=== PATIENT | female | born 1975 | race Caucasian/White ===

== ENCOUNTER → 2022-05-22 15:04 | Outpatient (CLI) | payer BC, SELFPAY ==
--- NOTE | ~2022-05-22 | US_ITS ---
EXAMINATION: US pelvic complete w TV DATE: 05/22/2022 15:34 INDICATION: Pelvic and perineal pain TECHNIQUE: Multiple transabdominal and endovaginal sonographic images of the pelvis were obtained. COMPARISON: None. FINDINGS: The uterus measures 6.9 x 3.5 x 4.7 cm. There is a 1.6 cm mass of the uterine fundus with t he appearance of an intramural fibroid. Smaller adjacent hypoechoic masses measuring up to 6 mm also likely reflect intramural fibroids. The endometrial complex measures 3 mm. Nabothian cysts are noted in the cervix. The right ovary measures 2.7 x 1.1 x 1.6 cm. The left ovary measures 2.1 x 1.5 x 1.5 c m. There is normal vascular flow in the ovaries. There is no free fluid in the pelvis. IMPRESSION: 1. Fibroid uterus. Reviewed, dictated and finalized at location B. TCH POLISHER IMPRESSION: 1. Fibroid uterus.
== END ==
PROVIDERS: PCP Physician Assistant; Visit Provider Obstetrics & Gynecology
DX: R10.2 Pelvic and perineal pain (principal); D25.9 Leiomyoma of uterus, unspecified
CPT/HCPCS: 76830; 76856

== ENCOUNTER 2024-02-08 14:34 | Outpatient (CLI) | payer BC, SELFPAY ==
--- NOTE | ~2024-02-08 | MM_ITS ---
EXAMINATION: MM screening kaity BI w savita HISTORY: Screening TECHNIQUE: Craniocaudal and mediolateral oblique 3-D tomosynthesis images were obtained and synthetic 2-D images were generated. CAD analysis was submitted and interpreted. COMPARISON: 08/13/2015 BREAST PARENCHYMAL COMPOSITION: Dense: The breasts are extremely dense, which lowers the sensitivity of mammography. FINDINGS: There is no evidence of suspicious mass, calcification, or architectural distortion to sugg est malignancy in either breast. There has been no suspicious interval change. IMPRESSION: 1. No mammographic evidence of malignancy. 2. Recommend routine screening mammography in one year. BI-RADS Category 1: Negative Reviewed, dictated and finalized at location B.
== END 2024-02-08 14:35 | disposition home or self-care (01) ==
LOC: ANHIMG 14:35
PROVIDERS: PCP Physician Assistant; Visit Provider Obstetrics & Gynecology
DX: Z12.31 Encounter for screening mammogram for malignant neoplasm of breast (principal)
CPT/HCPCS: 77063; 77067

== ENCOUNTER 2024-02-20 15:47 | Outpatient (CLI) | payer BC, SELFPAY ==
--- NOTE | ~2024-02-20 | XR_ITS ---
XR hip BI wo pelvis Ordering provider: Elis Cardenas, CHELITA History: . bilateral hip joint pain no injury . Comparison: None. FINDINGS: BONES: No acute fracture or dislocation. HIP JOINT SPACES: Normal. SACROILIAC JOINT SPACES/LUMBAR SPINE: The sacroiliac joint spaces are normal. Mild degenerative juarez es of the visualized lower lumbar spine. PUBIC SYMPHYSIS: Normal. SOFT TISSUES: Normal. IMPRESSION: No acute osseous abnormality of the bilateral hips and pelvis. Reviewed, dictated and finalized at location A.
== END 2024-02-20 15:48 | disposition home or self-care (01) ==
LOC: GOSHIMG 15:50
PROVIDERS: Visit Provider Physician Assistant
DX: M25.551 Pain in right hip (principal)
CPT/HCPCS: 73521

== ENCOUNTER 2024-08-30 10:00 | Outpatient (CLI) | payer BC, SELFPAY ==
--- NOTE | ~2024-08-30 | CT_ITS ---
EXAMINATION: CT sinus wo con DATE: 08/30/2024 10:47 INDICATION: Chronic sinusitis TECHNIQUE: Computed tomography (CT) of the paranasal sinuses was performed without intravenous contra st. The dose-length product was 286.08 mGy-cm. Automated exposure control and iterative reconstructio n technique were employed. COMPARISON: None FINDINGS: There is no significant mucosal thickening or air-fluid level. No mucoperiosteal reaction. Rightward nasal septal deviation. Ostiomeatal units are patent. Mastoids are pneumatized. IMPRESSION: 1. No significant sinus disease. Reviewed, dictated and finalized at location A.
--- OUTSIDE RECORDS SUMMARY | 2024-08-30 10:04 | XMS_ITS | Clinical Summary ---
Author Organization [facility] Address [address] [place] [address] Care Team Providers Care Supervisor Cell Room Name Role Phone Elis Wallace Primary Care Pr ovider Source Comments [facility],non-owned Affiliates and Associated Physician Practices is amultiple site organization consisting of ambulatory clinics and hospital sitesin [place], [place], [place]. This disclosure is being madepursuant to the Care Everywhere program and may not contain all information available regarding this patient. Last updated 18.[facility] Allergies No known active allergies Medications * Be aware that medications may not be up to date on this document. Alwaysverify current medications with the patient. OtherIndications: oral contraceptive Reasons: oral contraceptive Active Social History Tobacco Use Types Packs/Day Years Used Date Smoking Tobacco: Former Cigarettes 1 20 Smokeless Tobacco: Never Comments:vapor e cig now Comments No Sex and Gender Information Value Date Recorded Sex Assigned at Not on file Legal Sex Female 6:50 AM ALL ROUND LOGGER Gender Identity Not on file Sexual Orientation Not on file Last Filed Vital Signs Vital Sign Reading Time Taken Comments Blood Pressure 130/80 11/15/2018 5:31 PM CDT Pulse 78 11/15/2018 5:31 PM CDT Temperature 36.9 C (98.4 F) 11/15/2018 5:31 PM CDT Respiratory Rate 16 11/15/2018 5:31 PM CDT Oxygen Saturation 98% 11/15/2018 5:31 PM CDT Inhaled Oxygen Concentration - - Weight 70.3 kg (155 lb) 11/15/2018 5:31 PM CDT Height 177.8 cm (5' 10 ) 11/15/2018 5:31 PM CDT Body Mass Index 22.24 11/15/2018 5:31 PM CDT Plan of Treatment Health Maintenance Due Date Last Done Comments COLOGUARD (AGES 45-75) - COL ON CA SCREENING 1974 COLON MONITORING 1974 COLONOSCOPY - COLON CA SCREENING 1974 CT COLONOGRAPHY - COLON CA SCREENING 1974 Colorectal Cancer Screening 1974 FIT - COLON CA SCREENING 1974 FLEX SIG - COLON CA SCREENING 1974 LIPID TESTING 1974 MAMMOGRAM 1974 HIV SCREENING 1989 HEPATITIS C SCREENING 10/17/1992 DTAP/TDAP/TD VACCINES (1 - Tdap) 1993 HEPATITIS B VACCINE (1 of 3 - 19+ 3-dose series) 1993 COVID-19 VACCINE (1 - 2023-2 5 season) 2023 DEPRESSION SCREENING 04/23/2024 ZOSTER VACCINE (1 of 2) 2024 INFLUENZA VACCINE (Season Ended) 2024 HIB VACCINE Aged Out No longer eligi ble based on patient's age to complete this topic HPV VACCINE Aged Out No longer eligi ble based on patient's age to complete this topic MENINGOCOCCAL (Group B) VACC INE SHARED DECISION-MAKING Aged Out No longer eligibl e based on patient's age to complete this topic MENINGOCOCCAL GROUPS A/C/Y/W VACCINE Aged Out No longer eligible b ased on patient's age to complete this topic Insurance [employer] Care Teams Supervisor Cell Room Relationship Specialty Start Date End Date Elis Wallace PA [address] [place] [address] [place] [phone] PCP - General Physician Nurse Anesthetist 11/15/18
--- OUTSIDE RECORDS SUMMARY | 2024-08-30 10:04 | XMS_ITS | Referral Summary ---
Author Organization [facility] Address [address] [place] [phone] Phone Care Team Providers Care Manager Real Estate Name Role Phone David Cardenaswanda VALENTE Primary Care Pr ovider Encounters Date Type Department Care Team Description 06/06/2024 3:45 PM MICA LAMINATING MACHINE FEEDER Office Visit [facility] [address] [place] [id number] Sarah Hernandez, ALIA Bilateral acute serous otitis media, recurrence not specified (Primary Dx) from Last 3 Months Allergies No known active allergies Medications levonorgestreL- ethinyl estrad (SEASONALE) 0.15 mg-30 mcg (91) per tablet Take 1 tablet by mouth daily 3 Active multivitamin capsule Take 1 capsule by mouth daily Active B cmplx 4/vit D3/C/folic/zinc (VITAL-D RX ORAL) Take by mouth Active vitamin B complex (B COMPLEX-VITAMIN B12 ORAL) Take by mouth Active omega-3 fatty acids-fish oil (Fish OiL) 300-500 mg capsule Take by mouth Active turmeric root extract 500 mg capsule Take by mouth Active cyclobenzaprine (FLEXERIL) 10 mg tablet TAKE 1 TABLET 3 TIMES A DAY BY ORAL ROUTE NEEDED. [address] (VOLTAREN) 75 mg EC tablet TAKE ONE TABLET BY MOUTH TWICE A DAY WITH FOOD NEEDED Active topiramate (TOPAMAX) 50 mg tablet Take 1 tablet (50 mg total) by mouth 2 (two) times a day 5 Active fluticasone propionate (FLONASE) 50 mcg/actuation nasal sprayIndication s:Bilateral acute serous otitis media, recurrence not specified Administer 2 sprays into each nostril daily 1 each 5 Active Active Problems Problem Noted Date Diagnosed Date Weakness of left leg 06/19/2022 Lumbar radiculopathy 06/19/2022 Degeneration of lumbosacral intervertebral disc 06/19/2022 Neuralgia of left sciatic nerve 06/04/2022 Thoracic back pain 01/20/2022 COVID-19 09/13/2021 Multiple joint pain 07/20/2021 Low back pain 07/20/2021 Social History Tobacco Use Types Packs/Day Years Used Date Smoking Tobacco: Never Tobacco Cessation:Counseling Given: Not Answered AUDIT-C Answer Date Recorded Q1: How often do you have a drink containing alcohol? Never 03/07/2024 Q2: How many drinks containi ng alcohol do you have on a typical day when you are drinking? Patient does not drink Q3: How often do you have si x or more drinks on one occasion? Never 03/07/2024 Comments Unknown Sex and Gender Information Value Date Recorded Sex Assigned at Not on file Legal Sex Female 9:19 AM MICA LAMINATING MACHINE FEEDER Gender Identity Female 03/07/2022 5:46 PM MICA LAMINATING MACHINE FEEDER Sexual Orientation Straight 03/07/2022 5: 46 PM MICA LAMINATING MACHINE FEEDER Last Filed Vital Signs Vital Sign Reading Time Taken Comments Blood Pressure 104/70 06/06/2024 2:27 PM MICA LAMINATING MACHINE FEEDER Pulse 102 06/06/2024 2:27 PM MICA LAMINATING MACHINE FEEDER Temperature 36.6 C (97.8 F) 06/06/2024 2:27 PM MICA LAMINATING MACHINE FEEDER Respiratory Rate 16 06/06/2024 2:27 PM MICA LAMINATING MACHINE FEEDER Oxygen Saturation 99% 06/06/2024 2:27 PM MICA LAMINATING MACHINE FEEDER Inhaled Oxygen Concentration - - Weight 83.9 kg (185 lb) 06/06/2024 2:27 PM MICA LAMINATING MACHINE FEEDER Height 177.8 cm (5' 10 ) 06/06/2024 2:27 PM MICA LAMINATING MACHINE FEEDER Body Mass Index 26.54 06/06/2024 2:27 PM MICA LAMINATING MACHINE FEEDER Plan of Treatment Not on file [place] [facility] Care Teams Manager Real Estate Relationship Specialty Start Date End Date Elis Cardenas PA [address] [place] [phone] PCP - General Physician Production Inspector 02/11/24
--- OUTSIDE RECORDS SUMMARY | 2024-08-30 10:04 | XMS_ITS | Data Portability ---
Author Organization [facility] Address [address] [place] [address] Care Team Providers Care Soda Fountain Operator Name Role Phone ELIS GEORGE Primary Care Provider Unavailab le Assessment Encounter Date Assessment Date Assessment LastModified by Organization Details LastModified Time 02/08/2024 02/08/2024 mammogram: today was completed. results pending pap smear: annual exams with dr. loyola colonoscopy: Cologuard within the last 3 years eye exam: overdue dental exam: every 4 months labs UTD brought in to appt. [email or web address] Not available 02/08/2024 16:48:16 Plan of Treatment Reminders Order Date Submit Date Provider Last Modified By Organization Details Last Modified Time Details Appointments None recorded. Lab None recorded. Referral orthopedic spine surgeon referral 2023 [facility], [address] [place] [address], [address], 17:48:04 Procedures None recorded. Surgeries None recorded. Imaging XR, hip, bilateral 2023 024 [email or web address] [facility], [address], [place], [address], 14:52:19 Medication Orders diclofenac sodium 75 mg tablet,vashti yed release 2023 024 [facility] [address] In [facility], [address], [place], [address], 17:26:25 cyclobenzap rine 10 mg tablet 2023 024 [facility] [address] [facility], [address], [place], [address], 17:26:25 Patient TargetsNo targets recorded. Patient InstructionsNo instructions recorded. Reason for Referral Orthopedic Spine Surgeon Ref erral for Left foot drop Referring Physician: Elis George, Internal Medicine, Encounter Date: 02/08/2024 Results Created Date Observation Date Name Description Value Unit Range Abnormal Flag Note LastModifiedBy Organization Detail LastModifiedTime 02/08/2002/08/2024 MAMMO , scree baldev, digit al, bilat eral No observ ation record ed. [email or web address] [facility] [address], [place], [address], 02/08/2024 17:55:28 02/21/2002/20/2024 XR, hip, bilat eral No observ ation record ed. LUCAS [facility] [address] [facility] [address], [place], [address], 02/22/2024 18:45:38 Result Notes None recorded. Problems Name Problem SNOMED Code Status Onset Date Resolution Date Notes Provider Name and Address Organization Details Recorded Time Long-term drug therapy Active 2023 SIDRA Kahn Attn: Jayne mendez,[address] [place], [address], [facility] 18:27:26 Low back pain 821553403 Active 2023 SIDRA Kahn Attn: Jayne mendez,[address] [facility], [place], [address], [place] [facility] 4 18:27:30 Cramp in lower limb 207727010 Active 2023 SIDRA Kahn Attn: Jayne mendez,[address] [facility], [place], [address], [facility] 18:27:51 Left foot drop 2190154995262 05 Active 2023 SIDRA Kahn Attn: Jayne mendez,[address] [facility], [place], [address], [facility] 18:27:52 Pain of bilateral hip joints 6654244718856 9100 Active 2023 SIDRA Kahn Attn: Jayne mendez,[address] [facility], [place], [address], [facility] 18:28:05 Body mass index 25-29 - overweight 050219663 Active 2023 SIDRA Kahn Attn: Jayne mendez,[address], [place], [address], [facility] 18:28:37 Problem Notes None recorded. Procedures Surgical History Date Name Laterality Status Provider Name and Address Organization Details Recorded Time 9 Knee Surgery completed Alhaji Sosa MA [facility] 02/08/2024 16:32:04 Imaging Results Imaging Date Name Status LastModified by Organiz ation Details LastModified Time 02/08/2024 MAMMO, screening, digital, bilateral completed [email or web address] [facility] [address], [place], [address], 02/08/2024 17:55:28 02/20/2024 [facility]R, hip, [facility] [address] [facility] [address], [address], 02/22/2024 18:45:38 Procedure Notes None recorded. Medical Equipment None Reported. Allergies No known drug allergies Medications Name Sig Start Date Stop Date Status Note LastModified by Organization Details LastModified Time cyclobenzap rine 10 mg tablet TAKE 1 TABLET 3 TIMES A DAY BY ORAL ROUTE NEEDED. 2024 active Not Available Not Available Not Avai lable Medrol (Lamont) 4 mg tablets in a dose pack Take as directed 06/27 completed Not Available Not Available Not Available prednisone 20 mg tablet TAKE 2 TABLETS BY MOUTH EVERY DAY FOR 5 DAYS active Not Available Not Available No t Available topiramate 25 mg tablet TAKE 1 TABLET BY MOUTH EVERYDAY AT BEDTIME 05/22 completed Not Available Not Available Not Available amoxicillin 875 mg tablet TAKE 1 TABLET BY MOUTH EVERY 12 HOURS active Not Available Not Available No t Available diclofenac sodium 75 mg tablet,vashti yed release TAKE ONE TABLET BY MOUTH TWICE A DAY WITH FOOD NEEDED 2024 active Not Available Not Available Not Avai lable fluticasone propionate 50 mcg/actuati on nasal spray,suspe nsion SPRAY 2 SPRAYS INTO EACH NOSTRIL EVERY DAY 2024 active Not Available Not Available Not Avai lable amoxicillin 875 mg-potassiu m clavulanate 125 mg tablet TAKE 1 TABLET BY MOUTH TWICE A DAY FOR 10 DAYS active Not Available Not Available No t Available levonorgest rel 0.15 mg-ethinyl estradiol 30 mcg tablets,3 mos pack(91) TAKE 1 TABLET DAILY active Not Available Not Available No t Available topiramate 50 mg tablet TAKE 1 TABLET BY MOUTH TWICE A DAY 2024 active Not Available Not Available Not Avai lable Vitals Date Recorded Body weight Body mass index (BMI) Body height Oxygen saturation Oxygen saturation in Arterial blood by Pulse oximetry Heart rate Respiratory rate Systolic blood pressure Diastolic blood pressure Provider Name and Address Organization Details Last Updated DateTime 4 83235.4 g 25.5 kg/m2 180.34 cm 99 % 99 % 78 /min 18 /min 108 mm[Hg] 68 mm[Hg] Alhaji Sosa [place] [facility] 16:36:11 Date Recorded Systolic blood pressure Diastolic blood pressure Provider Name and Address Organization Details Last Updated DateTime 02/08/2024 110 mm[Hg] 80 mm[Hg] SIDRA Kahn Attn: Accounting,[address] [place], [address], [place] [facility] 02/24/2024 18:23:35 Social History Question Answer Notes LastModified by Organizat ion Details LastModified Time Tobacco Smoking Status Former Smoker quit 2022 Alhaji Sosa MA null, [place] [facility] 02/08/2024 16:30:33 Do You Have An Advance Directive? Yes Information not available 02/08/2024 What Is Your Level Of Alcohol Consumption? None Information not available 02/08/2024 Are You Blind Or Do You Have Difficulty Seeing? No Readers Information not available 02/08/2024 What Is Your Level Of Caffeine Consumption? Moderate Information not available 02/08/2024 In The 14 Days Before Symptom Onset, Have You Had Close Contact With A Laboratory-confir med COVID-19 While That Case Was Ill? No Information not available 02/08/2024 In The 14 Days Before Symptom Onset, Have You Had Close Contact With A Person Who Is Under Investigation For COVID-19 While That Person Was Ill? No Information not available 02/08/2024 Have You Been To An Area Known To Be High Risk For COVID-19? No Information not available 02/08/2024 Are You Currently Employed? Yes Information not available 02/08/2024 Are You Deaf Or Do You Have Serious Difficulty Hearing? No Information not available 02/08/2024 What Type Of Diet Are You Following? 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 No Information not available 02/08/2024 What Was The Date Of Your Most Recent Tobacco Screening? 02/08/2024 Information not available 02/08/2024 What Is Your Current Pack Years? 20-29packyea rs Information not available 02/08/2024 What Is Your Relationship Status? Information not available 02/08/2024 Do You Use Your Seat Belt Or Car Seat Routinely? Yes Information not available 02/08/2024 Do You Have Smoke And Carbon Monoxide Detectors In Your Home? Yes Information not available 02/08/2024 How Much Tobacco Do You Smoke? No Information not available 02/08/2024 Do You Feel Stressed (tense, Restless, Nervous, Or Anxious, Or Unable To Sleep At Night)? [id number] Information not available 02/08/2024 Do You Use Any Illicit Or Recreational Drugs? No Information not available 02/08/2024 Do You Use Sunscreen Routinely? Yes Sometimes Information not available 02/08/2024 Has Tobacco Cessation Counseling Been Provided? No Information not available 02/08/2024 How Many Years Have You Smoked Tobacco? 20 Information not available 02/08/2024 Do You Or Have You Ever Used Any Other Forms Of Tobacco Or Nicotine? No Information not available 02/08/2024 Sex: Female Functional Status Question Answer Note LastModified by Organizat ion Details LastModified Time Are you able to care for yourself? Yes Information not available 02/08/2024 What is your exercise level? Moderate 3x a week 30 mins Information not available 02/08/2024 Mental Status None recorded. Family History Relationship Description Onset Age of this Age Resolved Age Notes LastModified by Organization Details LastModified Time Brother Harmful pattern of use of alcohol [email or web address] Not available 2023 16:29:38 Brother Depressive disorder tcarterma Not available 2023 16:29:52 Brother Anxiety tcarterma Not availabl e 02/08/2024 16:29:57 Medical History Condition Response Coronary Artery Disease N Other N High Blood Pressure N Atrial Fibrillation N Kidney or Bladder Problems N Thyroid Problems N GI Problems N Depression N COPD Y Blood Clots N Have you had a mammogram in the last yea r? N Skin Problems N Anemia N Heart Attack (HI) N Anxiety Disorder N Diabetes N Muscle, Joint, or Bone Problems N Seizures/Epilepsy N Have you had a colonoscopy in the last 1 0 years? N Acid Reflux (GERD) N Cancer N Stroke N Asthma N Allergies N Have you had a PSA blood test in the las t year? N High Cholesterol N Hepatitis N Liver Disease N Headaches N Heart Failure N Osteoporosis N Gynecological History Statement/Question Response Duration of Flow (days) Current Control Method BCPs Obstetrics History GPAL:G 0 P 0 0 0 0 Immunizations Vaccine Type Date Status Note Provider Nam samuel and Address Organization Details Recorded Time Influenza, MDCK, quadrivalent, PF 02/27/2022 completed Alhaji S[place], [place] [facility] 02/08/2024 16:33:03 Influenza, MDCK, quadrivalent, PF 03/02/2023 completed ANOOP [place], [place] [facility] 02/08/2024 16:33:04 COVID-19, mRNA, LNP-S, PF, 100 mcg/0.5mL dose or 50 mcg/0.25mL dose 05/07/2020 [place] ANOOP [place] [facility] 02/08/2024 16:33:04 COVID-19, mRNA, LNP-S, PF, 100 mcg/0.5mL dose or 50 mcg/0.25mL dose 06/04/2020 [place] ANOOP [place] [facility] 02/08/2024 16:33:04 COVID-19, mRNA, LNP-S, PF, 100 mcg/0.5mL dose or 50 mcg/0.25mL dose 04/10/2021 [place] ANOOP [place] [facility] 02/08/2024 16:33:04 influenza, unspecified formulation 02/15/2024 [place] AN[place]OP [place] [facility] 02/18/2024 10:18:23 Past Encounters Encounter ID Performer Location Encounter Start Date Encounter Closed Date Diagnosis/Indication Diagnosis SNOMED-CT Code Diagnosis ICD10 Code Diagnosis Note [id number] Conrad Baez MD [facility] [place] [address] [place] [address] 02/08/2024 16:05:09 02/11/2024 15:13:45 Adult health examination 336344346 Z00.00 Annual wellness exam is completed, labs were reviewed with patient. Long-term drug therapy 081752092 Z79.891 Refill on Flexeril as directed Low back pain 013297369 M54.50 Refill on diclofenac therapy as directed Cramp in lower limb 0029 40883 R25.2 Cramp and lower limb reviewed with patient. Suggest some homeopathi c modalities such as Epson salt soaks or topical cream agents or magnesium supplement Left foot drop 629369453 1 78480 M21.372 Refer to ortho commodity management specialist for evaluation on her left footdrop onset Pain of bi lateral hip joints 9458064265 0884976 M25.551 M25.552 Check baseline x-rays of the hips with bilateral hip pain reported Body mass index 25-29 - overweight 990074207 Z68.25 BMI is 25.5 Health Concerns Section Related Observation LastModified by Organization Detai ls LastModified Time None Recorded Concern Status LastModified by Organization Details LastModified Time None Recorded Advance Directives Directive Y: Payers Encounter Date Sequence Insurance Name Policy Number Policy Carrasco Covered Member ID Carrasco Member ID Guarantor Name 02/08/2024 1 [facility]: ([place]) [id number] [id number] Notes Date Note Type Note Provider Name and Address Organization Details Recorded Time 02/08/2024 text/html Patient is here for her annual wellness exam. She had her labs completed in November and they are able to be reviewed today. Her only complaints are her chronic low back pain that she has and takes diclofenac for on a daily basis. She also takes some cyclobenzaprine muscle relaxer which helps as well on a p.r.n. basis. New complaints accompanying that include cramps in her lower limb as well as a left footdrop that has been progressive over this year. Her hips hurt on both sides and are also a chronic complaint. She does need refills on her medications. SIDRA Kahn Attn: Accounting,[address] [facility], [place], [address], [facility] 02/24/2024 18:28:53 OBGyn Episode No OBEpisode recorded.
--- OUTSIDE RECORDS SUMMARY | 2024-08-30 10:05 | XMS_ITS | Clinical Summary ---
Author Organization [facility] Address [address] [place] [id number] Phone Care Team Providers Care Service Engineer Name Role Phone Theresa Elis VALENTE Primary Care Pr ovider Allergies No known active allergies Medications levonorgestreL- [...] joint pain 07/20/2021 Low back pain 07/20/2021 Encounters Date Type Department Care Team Description 06/06/2024 3:45 PM CONTRACT FORESTER Office Visit [facility] [address] [place] [id number] Sarah Hernandez, [place] Bilateral acute serous otitis media, recurrence not specified (Primary Dx) from Last 3 Months Surgical History Surgery Date Site/Laterality Comments KNEE SURGERY 1980.1987,1988 BREAST CYST EXCISION Family History Medical History Relation Name Comments Alcohol abuse Brother Mental illness Brother Arthritis Father COPD Father Cancer Father Rheum arthritis Mother Relation Name Status Comments Brother Father Mother Social History Tobacco Use Types Packs/Day Years [...] on file Legal Sex Female 9:19 AM CONTRACT FORESTER Gender Identity Female 03/07/2022 5:46 PM CONTRACT FORESTER Sexual Orientation Straight 03/07/2022 5: 46 PM CONTRACT FORESTER Obstetrics History Last Filed Vital Signs Vital Sign Reading Time Taken Comments Blood Pressure 104/70 06/06/2024 2:27 PM CONTRACT FORESTER Pulse 102 06/06/2024 2:27 PM CONTRACT FORESTER Temperature 36.6 C (97.8 F) 06/06/2024 2:27 PM CONTRACT FORESTER Respiratory Rate 16 06/06/2024 2:27 PM CONTRACT FORESTER Oxygen Saturation 99% 06/06/2024 2:27 PM CONTRACT FORESTER Inhaled Oxygen Concentration - - Weight 83.9 kg (185 lb) 06/06/2024 2:27 PM CONTRACT FORESTER Height 177.8 cm (5' 10 ) 06/06/2024 2:27 PM CONTRACT FORESTER Body Mass Index 26.54 06/06/2024 2:27 PM CONTRACT FORESTER Plan of Treatment Health Maintenance Due Date Last Done Comments Breast Cancer Screening-Mammogram 1974 Cervical Cancer Screening 1974 Colon Cancer Screening-Colonoscopy 1974 Depression Screening 1974 Hepatitis C Screening 1974 DTaP/Tdap/Td Vaccine (1 - Tdap) 1985 Hepatitis B Screening 1992 Regular Well Visit/Exam 18-64 1992 Covid-19 Vaccine (2023-2 5 season) 2023 04/10/2021, 06/04/2020, 05/07/2020 Influenza Vaccine Completed 02/15/2024, 03/02/2023, 02/27/2022 Pneumococcal vaccine <65 Aged Out No longer eligible based on patient's age to complete this topic [place] [address] [facility] [place] Care Teams Service Engineer Relationship Specialty Start Date End Date Elis Cardenas PA [address] [place] [address] PCP - General Physician Feed Mill Manager 02/11/24
--- OUTSIDE RECORDS SUMMARY | 2024-08-30 10:05 | XMS_ITS | Data Portability ---
Author Organization [facility], Main Office Address [address] [place] [address] Assessment Encounter Date Assessment Date Assessment LastModified by Organization Details LastModified Time 02/02/2023 02/02/2023 mammogram normal UTD cologuard 2021 negative eye exam due dental UTD labs due [email or web address] Not available 02/02/2023 17:32:34 Plan of Treatment Reminders Order Date Submit Date Provider Last Modified By Organization Details Last Modified Time Details Appointments None recorded . Lab TSH + free T4, serum 023 02/03/20 [email or web address] [facility], [address], [place], [address], 4 10:18:12 lipid panel, serum 023 02/03/20 23 [email or web address] [facility], [address], [place], [address], 4 10:18:11 CBC w/ auto diff 023 02/03/20 [email or web address] [facility], [address], [place], [address], 4 10:18:11 CMP, serum or plasma 023 02/03/20 [email or web address] [facility], [address], [place], [address], 4 10:18:12 urinalys is, dipstick , reflex micro 023 02/03/20 23 [email or web address] [facility], [address], [place], [address], 4 10:18:12 HbA1c (hemoglo bin A1c), blood 023 02/03/20 23 [email or web address] [facility], [address], [place], [address], 4 10:18:11 Referral None recorded . Procedures None recorded . Surgeries None recorded . Imaging None recorded . Medication Orders None recorded . Patient TargetsNo targets recorded. Patient InstructionsNo instructions recorded. Reason for Referral None Reported. Results Created Date Observation Date Name Description Value Unit Range Abnormal Flag Note LastModifiedBy Organization Detail LastModifiedTime 07/24/1907/26/2021 CULTU RE, URINE , ROUTI NE culture, urine, routine CULTU RE, URINE , ROUTI NE Micro Numbe r: [id number] Test Statu s: Final Speci men Sourc e: Urine Speci men Quali ty: Adequ ate Resul t: Mixed genit al domingo isola kim. These super ficia l bacte kamran are not indic ative of a urina ry tract infec tion. No furth er organ ism ident ifica tion is warra nted on this speci men. If clini elis indic ated, recol lect clean -catc h, mid-s tream urine and trans vy immed iatel y to Urine Cultu re Trans port Tube. Not Available [facility] [address] [place], [address], 07/26/2021 07:43:23 07/24/19 22 07/26/2021 RHEUM ATOID FACTO R rheumatoid factor <14 IU/mL <14 normal Not Available [facility] [address] [place], [address], 07/26/2021 07:43:22 07/24/19 22 07/26/2021 REFLE XIVE URINE CULTU RE reflexive urine culture CULTU RE INDIC ATED - RESUL TS TO FOLLO W Not Available [address], [address], 07/26/2021 07:43:22 07/24/19 22 07/26/2021 URINA LYSIS , COMPL ETE W/REF KRISTIAN TO CULTU RE appearance cloudy clear abnormal Not Available [address], [address], 07/26/2021 07:43:22 07/24/19 22 07/26/2021 URINA LYSIS , COMPL ETE W/REF KRISTIAN TO CULTU RE specific gravity 1.015 1.001- 1.035 normal Not Available [address], [address], 07/26/2021 07:43:22 07/24/19 22 07/26/2021 URINA LYSIS , COMPL ETE W/REF KRISTIAN TO CULTU RE pH 7.5 5.0-8. 0 normal Not Available [address], [address], 07/26/2021 07:43:22 07/24/19 22 07/26/2021 URINA LYSIS , COMPL ETE W/REF KRISTIAN TO CULTU RE glucose negati ve negati ve normal Not Available [address], [address], 07/26/2021 07:43:22 07/24/19 22 07/26/2021 URINA LYSIS , COMPL ETE W/REF KRISTIAN TO CULTU RE bilirubin negati ve negati ve normal Not Available [address], [address], 07/26/2021 07:43:22 07/24/19 22 07/26/2021 URINA LYSIS , COMPL ETE W/REF KRISTIAN TO CULTU RE ketones negati ve negati ve normal Not Available [address] [place], [address], 07/26/2021 07:43:22 07/24/19 22 07/26/2021 URINA LYSIS , COMPL ETE W/REF KRISTIAN TO CULTU RE occult blood negati ve negati ve normal Not Available [address], [address], 07/26/2021 07:43:22 07/24/19 22 07/26/2021 URINA LYSIS , COMPL ETE W/REF KRISTIAN TO CULTU RE protein negati ve negati ve normal Not Available [address], [address], 07/26/2021 07:43:22 07/24/19 22 07/26/2021 URINA LYSIS , COMPL ETE W/REF KRISTIAN TO CULTU RE nitrite negati ve negati ve normal Not Available [address], [address], 07/26/2021 07:43:22 07/24/19 22 07/26/2021 URINA LYSIS , COMPL ETE W/REF KRISTIAN TO CULTU RE leukocyte esterase 3+ negati ve abnormal Not Available [address], [address], 07/26/2021 07:43:22 07/24/19 22 07/26/2021 URINA LYSIS , COMPL ETE W/REF KRISTIAN TO CULTU RE WBC 0-5 /hpf < or = 5 normal Not Available [address], [address], 07/26/2021 07:43:22 07/24/19 22 07/26/2021 URINA LYSIS , COMPL ETE W/REF KRISTIAN TO CULTU RE RBC 0-2 /hpf < or = 2 normal Not Available [facility] [address], [address], 07/26/2021 07:43:22 07/24/19 22 07/26/2021 URINA LYSIS , COMPL ETE W/REF KRISTIAN TO CULTU RE squamous epithelial cells 10-20 /hpf < or = 5 abnormal Not Available [facility] [address], [address], 07/26/2021 07:43:22 07/24/19 22 07/26/2021 URINA LYSIS , COMPL ETE W/REF KRISTIAN TO CULTU RE bacteria modera te /hpf none seen abnormal Not Available [facility] [address], [address], 07/26/2021 07:43:22 07/24/19 22 07/26/2021 URINA LYSIS , COMPL ETE W/REF KRISTIAN TO CULTU RE hyaline cast none seen /lpf none seen normal Not Available [facility] [address], [address], 07/26/2021 07:43:22 07/24/19 22 07/26/2021 URINA LYSIS , COMPL ETE W/REF KRISTIAN TO CULTU RE color yellow yellow normal Not Available [facility] [address], [address], 07/26/2021 07:43:22 07/24/19 22 07/26/2021 HEMOG LOBIN A1C hemoglobin A1C 5.2 %_of_ total _HGB <5.7 normal For the purpo se of wali de paz for the prese nce of diabe anthony: <5.7% Consi stent with the absen ce of diabe anthony 5.7-6 .4% Consi stent with incre ased risk for diabe anthony (pred iabet es) > or =6.5% Consi stent with diabe anthony This assay resul t is consi stent with a decre ased risk of diabe anthony. Curre ntly, no conse nsus exist param nolen use of hemog lobin A1c for diagn osis of diabe anthony in child debi. Accor ding to Ameri can Diabe anthony Assoc iatio n (ADA) guide lines , hemog lobin A1c <7.0% repre sents optim al contr ol in non-p regna nt diabe tic patie nts. Diffe rent ri cs may apply to speci fic patie nt popul ation s. [facility] ards of Medic al Care in Diabe anthony(A DA). Not Available [address] [address] [place], [address], 07/26/2021 07:43:21 07/24/19 22 07/26/2021 COMPR EHENS MAXIMUS METAB OLIC PANEL chloride 104 mmol/ L 98-110 normal Not Available [address], [address], 07/26/2021 07:43:21 07/24/19 22 07/26/2021 COMPR EHENS MAXIMUS METAB OLIC PANEL glucose 83 mg/dL 65-99 normal Fasti ng refer ence inter miki Not Available [address] [place], [address], 07/26/2021 07:43:21 07/24/19 22 07/26/2021 COMPR EHENS MAXIMUS METAB OLIC PANEL urea nitrogen (BUN) 12 mg/dL 7-25 normal Not Available [address], [address], 07/26/2021 07:43:21 07/24/19 22 07/26/2021 COMPR EHENS MAXIMUS METAB OLIC PANEL creatinine 0.80 mg/dL 0.50-1 .10 normal Not Available [address] [place], [address], 07/26/2021 07:43:21 07/24/19 22 07/26/2021 COMPR EHENS MAXIMUS METAB OLIC PANEL eGFR non-afr. citizen of [place] 88 mL/mi n/1.7 3m2 > or = 60 normal Not Available [address] [place], [address], 07/26/2021 07:43:21 07/24/19 22 07/26/2021 COMPR EHENS MAXIMUS METAB OLIC PANEL eGFR 102 mL/mi n/1.7 3m2 > or = 60 normal Not Available [address], [address], 07/26/2021 07:43:21 07/24/19 22 07/26/2021 COMPR EHENS MAXIMUS METAB OLIC PANEL BUN/creatini ne ratio not applic able (calc ) 6-22 Not Available [address], [address], 07/26/2021 07:43:21 07/24/19 22 07/26/2021 COMPR EHENS MAXIMUS METAB OLIC PANEL sodium 141 mmol/ L 135-14 6 normal Not Available [address], [address], 07/26/2021 07:43:21 07/24/19 22 07/26/2021 COMPR EHENS MAXIMUS METAB OLIC PANEL potassium 4.5 mmol/ L 3.5-5. 3 normal Not Available [address], [address], 07/26/2021 07:43:21 07/24/19 22 07/26/2021 COMPR EHENS MAXIMUS METAB OLIC PANEL carbon dioxide 24 mmol/ L 20-32 normal Not Available [address], [address], 07/26/2021 07:43:21 07/24/19 22 07/26/2021 COMPR EHENS MAXIMUS METAB OLIC PANEL calcium 9.8 mg/dL 8.6-10 .2 normal Not Available [address], [address], 07/26/2021 07:43:21 07/24/19 22 07/26/2021 COMPR EHENS MAXIMUS METAB OLIC PANEL protein, total 6.7 g/dL 6.1-8. 1 normal Not Available [facility] [address] [place], [address], 07/26/2021 07:43:21 07/24/19 22 07/26/2021 COMPR EHENS MAXIMUS METAB OLIC PANEL albumin 4.3 g/dL 3.6-5. 1 normal Not Available [address], [address], 07/26/2021 07:43:21 07/24/19 22 07/26/2021 COMPR EHENS MAXIMUS METAB OLIC PANEL globulin 2.4 g/dL_ (calc ) 1.9-3. 7 normal Not Available [address], [address], 07/26/2021 07:43:21 07/24/19 22 07/26/2021 COMPR EHENS MAXIMUS METAB OLIC PANEL albumin/glob ulin ratio 1.8 (calc ) 1.0-2. 5 normal Not Available [address] [address] [place], [address], 07/26/2021 07:43:21 07/24/19 22 07/26/2021 COMPR EHENS MAXIMUS METAB OLIC PANEL bilirubin, total 0.7 mg/dL 0.2-1. 2 normal Not Available [address], [address], 07/26/2021 07:43:21 07/24/19 22 07/26/2021 COMPR EHENS MAXIMUS METAB OLIC PANEL alkaline phosphatase 38 U/L 31-125 normal Not Available [facility] [employer] [address] [address] [place], [address], 07/26/2021 07:43:21 07/24/19 22 07/26/2021 COMPR EHENS MAXIMUS METAB OLIC PANEL AST 16 U/L 10-35 normal Not Available [address] [address] [place], [address], 07/26/2021 07:43:21 07/24/19 22 07/26/2021 COMPR EHENS MAXIMUS METAB OLIC PANEL ALT 20 U/L 6-29 normal Not Available [address], [address], 07/26/2021 07:43:21 07/24/19 22 07/26/2021 DIREC T LDL direct LDL 110 mg/dL <100 high Erica able range <100 mg/dL for prima ry preve ntion ; <70 mg/dL for patie nts with CHD or diabe tic patie nts with > or = 2 CHD risk facto rs. Not Available [address], [address], 07/26/2021 07:43:20 07/24/19 22 07/26/2021 LIPID PANEL , STAND JOSELINE cholesterol, total 183 mg/dL <200 normal Not Available [address], [address], 07/26/2021 07:43:20 07/24/19 22 07/26/2021 LIPID PANEL , STAND JOSELINE HDL cholesterol 60 mg/dL > or = 50 normal Not Available [address], [address], 07/26/2021 07:43:20 07/24/19 22 07/26/2021 LIPID PANEL , STAND JOSELINE triglyceride s 93 mg/dL <150 normal Not Available [address], [address], 07/26/2021 07:43:20 07/24/19 22 07/26/2021 LIPID PANEL , STAND JOSELINE LDL-choleste rol 104 mg/dL _(rupert c) high Refer ence range : <100 Erica able range <100 mg/dL for prima ry preve ntion ; <70 mg/dL for patie nts with CHD or diabe tic patie nts with > or = 2 CHD risk facto rs. LDL-C is now calcu lated using the Rachael n-[facility] kins johanne spears, which is a valid ated novel metho d sidneyi callum downingte tyron accur acy than the Fried amanda equat ion in the estim ation of LDL-C . Rachael spears SS et al. ANDRZEJ. 2013; 310(1 9): 2061- 2068 (http ://ed ucati on.Sounday. com/f aq/FA Q164) Not Available [address], [address], 07/26/2021 07:43:20 07/24/19 22 07/26/2021 LIPID PANEL , STAND JOSELINE chol/HDLC ratio 3.1 (calc ) <5.0 normal Not Available [address] [address] [place], [address], 07/26/2021 07:43:20 07/24/19 22 07/26/2021 LIPID PANEL , STAND JOSELINE non HDL cholesterol 123 mg/dL _(rupert c) <130 normal For patie nts with diabe anthony plus 1 major ASCVD risk facto r, treat ing to a non-H DL-C goal of <100 mg/dL (LDL- C of <70 mg/dL ) is mery carcamo optio n. Not Available [address] [address] [place], [address], 07/26/2021 07:43:20 07/24/1907/26/2021 TSH+F REE T4 TSH 2.27 mIU/L normal Refer ence Range > or = 20 Years 0.40- 4.50 Pregn dwain Range s First trime ster 0.26- 2.66 Secon d trime ster 0.55- 2.73 Third trime ster 0.43- 2.91 Not Available [facility] [address] [address] [place], [address], 07/26/2021 07:43:19 07/24/19 22 07/26/2021 TSH+F REE T4 T4, free 1.3 NG/dL 0.8-1. 8 normal Not Available [facility] [address] [address], [place], [address], 07/26/2021 07:43:19 01/27/20 22 01/26/2022 COLOG UARD cologuard result reportable negati ve negati ve NEGAT MAXIMUS TEST RESUL T. A negat maximus Colog uard resul t indic ates a low likel ihood that a color ectal cance r (CRC) or advan guillermina adeno ma (janelle omato us polyp s with more advan guillermina pre-m align ant featu res) is prese nt. The chanc e that a perso n with a negat maximus Colog uard test has a color ectal cance r is less than 1 in 1500 (nega tive predi ctive value >99.9 %) or has an advan guillermina adeno ma is less than 5.3% (nega tive predi ctive value 94.7% ). These data are based on a prosp ectiv e cross -sect ional study of ,00 0 indiv idual s at [facility] risk for color ectal cance r who were scree mercy with both Colog uard and colon oscop y. (Apolinar Jeter et al, N Engl J Med 2014; 370(1 4):12 86-12 97) The keerthi l value (refe rence range ) for this assay is negat maximus. COLOG UARD RE-SC REENI NG RECOM MENDA TION: Perio dic color ectal cance r scree baldev is an impor tant part of preve ntive healt hcare for asymp tomat ic indiv idual s at [facility] risk for color ectal cance r. Follo wing a negat maximus Colog uard resul t, the Ameri can Cance r Socie ty and U.S. Multi -Soci ety Task Force scree baldev guide lines recom mend a Colog uard re-sc reeni ng inter miki of 3 years . Refer ences : Ameri can Cance r Socie ty Guide line for Color ectal Cance r Scree baldev: https ://ww w.can cer.o rg/ca ncer/ colon -rect al-ca ncer/ detec tion- diagn osis- stagi ng/ac s-rec ommen datio ns.ht ml.; Anthony KAMINSKI, Christie dowell CR, Carlos MesaK, Color ectal Cance r Scree baldev: Recom menda tions for Physi cians and Patie nts from the U.S. Multi -Soci ety Task Force on Color ectal Cance r ScreXavier holt rolog y 2017; 112:1 016-1 030. TEST DESCR IPTIO N: [place] site algor ithmi c boone sis of stool DNA-b jose r silva with hemog lobin immun oassa y. Quant itati ve value s of indiv idual bioma rkers are not repor table and are not assoc iated with indiv idual bioma rker resul t refer ence range s. Colog uard is inten ded for color ectal cance r scree baldev of adult s of eithe r sex, 45 years or older , who are at [facility] for color ectal cance r (CRC) . Colog uard has been appro eloy for use by the U.S. FDA. The perfo rmanc e of Colog uard was estab lishe d in a cross secti onal study of [facility] adult s aged 50-84 . Colog uard perfo rmanc e in patie nts ages 45 to 49 years was estim ated by andrew-g sudhakarp boone sis of near- age group s. Colon oscop ies perfo rmed for a posit maximus resul t may find as the most clini elis signi ficmaurizio t lesio n: color ectal cance r [4.0% ], advan guillermina adeno ma (incl uding sessi le renetta kim polyp s great er than or equal to 1cm diame ter) [20%] or non- advan guillermina adeno ma [31%] ; or no color ectal neopl ann marie [45%] . These estim ates are deriv ed from a prosp ectiv e cross -sect ional scree baldev study of 10,00 0 indiv idual s at avera ge risk for color ectal cance r who were scree mercy with both Colog uard and colon oscop y. (Apolinar Landers. et al, N Engl J Med 2014; 370(1 4):12 86-12 97.) Colog uard may produ ce a false negat maximus or false posit maximus resul t (no color ectal cance r or preca ncero us polyp prese nt at colon oscop y follo w up). A negat maximus Colog uard test resul t does not guara ntee the absen ce of CRC or advan guillermina adeno ma (pre- cance r). The curre nt Colog uard scree baldev inter miki is every 3 years . (Amer ican Cance r Socie ty and U.S. Multi -Soci ety Task Force ). Colog uard perfo rmanc e data in a 0 patie nt pivot al study using colon oscop y as the refer ence metho d can be acces sed at the follo wing locat ion: www.e xactl abs.c om/re do . Addit ional descr iptio n of the Colog uard test proce ss, warni ngs and preca ution s can be found at www.c ologu joseline.c om. Not Available [employer] (Cologuard Orders Only) [address], [place], [address], 01/31/2022 18:47:50 01/15/20 21 01/14/2021 MAMMO , scree baldev, digit al, bilat eral No observ ation record ed. [id number] [facility] [place] [facility] [address] [place], [address], 06/21/2022 03:34:14 01/15/20 21 MAMMO , scree baldev, digit al, bilat eral [facility] [address] [place] [address] Patien t Name: MOISÉS ROGERS ER Access ion #: [id number] Sex: F : 1975 7 Locati on: RA2 Attend ing Physic lynn: ZEFERINO HICKS Orderi ng Physic lynn: ZEFERINO HICKS Exam Date: 8:08 AM Exam Name: DIGITA Cyrus DONIS BILAT SCREEN Admitt ing Diagno sis(es ): RADIOL OGY REPORT - FINAL EXAM: MG DIGITA L DONIS BILAT SCREEN HISTOR Y: screen ing mammog merritt COMPAR PIOTR: Mammog yaron 2017 TECHNI QUE: Bilate ral CC and MLO views of the breast s were perfor med. Digita l Mammog yaron images were obtain ed. CAD (compu ter assist ed detect ion) was utiliz ed. FINDIN GS: The breast s are extrem billie dense, which lowers the sensit ivity of mammog yaron. No masses , asymme tries, suspic ious calcif icatio ns, or dylon ectura l distor tion are seen. Page 1 of 2 [facility] Name: MOISÉS ROGERS ER Access ion #: [id number] Sex: F : 1975 7 Exam Date: 8:08 AM Exam Name: MG OSCAR Bridges DONIS BILAT SCREEN Admitt ing Diagno sis(es ): IMPRES PAULO: BIRADS 1: Assess ment comple te. Negati ve. Recomm end annual screen ing mammog yaron. Accord ing to the Americ an Colleg e [employer] o[employer], yearly mammog rupali are recomm ended starti ng at age 40 and contin uing as long as the woman is in good health . Clinic al Breast Exam should be part of the period health exam-a bout every 3 years for women in their 20s and 30s and every year for women 40 and over. Breast self-e xam is an option for women in their 20s. Any breast change noted on the breast self-e xam she would be report ed prompt ly to the [facility]. A negati ve mammog yaron report should not discou rage follow -up or biopsy of a clinic ally signif icant findin g and/or abnorm ality. Dense breast tissue may obscur e small neopla sms. This patien t has been entere d into a mammog yaron remind er system with a target date for her next mammog merritt. Create d and electr onical ly signed by: Javy Chapman ch, DO Signed Date: 9:01 AM (CT) Dictat ed by: Javy Chapman ch, DO DD: 9:01 AM (CT) DT: 9:01 AM (CT) Page 2 of 2 [id number] [facility] [place] [facility] (Imaging) [address] [place], [address], 06/21/2022 03:34:14 02/29/20 21 01/14/2021 MAMMO , scree baldev, digit al, bilat eral No observ ation record ed. MIGRATION. [facility] [place] [facility] [address] [place], [address], 06/21/2022 03:34:14 01/21/20 22 01/20/2022 XR, chest No observ ation record ed. MIGRATION. [id number] [facility] [address] [place], [address], 06/21/2022 03:34:14 01/21/20 22 01/20/2022 XR, thora cic spine No observ ation record ed. MIGRATION. [id number] [facility] [address] [place], [address], 06/21/2022 03:34:14 03/21/20 22 01/20/2022 MAMMO , scree baldev, digit al, bilat eral No observ ation record ed. MIGRATION. [id number] [facility] [address] [place], [address], 06/21/2022 03:34:14 05/31/19 23 05/22/2022 US, pelvi s No observ ation record ed. [id number] [facility] [address] [place], [address], 06/21/2022 03:34:14 07/04/19 23 07/03/2022 MRI, lumba r spine , w/o contr ast No observ ation record ed. [email or web address] Not Available 07/10 10:33:37 07/21/19 23 06/01/2022 imagi ng/di agnos tic resul t No observ ation record ed. BARCODE Not Available 2022 11:47:13 02/17/20 23 01/19/2023 MAMMO , scree baldev, digit al, bilat eral No observ ation record ed. [email or web address] [facility] [address] [place], [address], 02/20/2023 15:27:43 Result Notes None recorded. Problems Name Problem SNOMED Code Status Onset Date Resolution Date Notes Provider Name and Address Organization Details Recorded Time Lumbar radiculopa thy 193982564 Active 2022 Not Available [facility] 3 11:45:00 Weakness of left leg 8954261907904 9104 Active 2022 Not Available [facility] 3 11:45:00 Thoracic back pain 138983287 Active 2021 Not Available [facility] 3 11:45:00 Low back pain 340892324 Active 2021 Not Available [facility] 3 11:45:00 Left side sciatica 5063697717283 04 Active 2022 Not Available [facility] 3 11:45:00 Pain of multiple joints 79728671 Active 2021 Not Available [facility] 3 11:45:00 Degenerati on of lumbosacra l interverte bral disc 93860108 Active 2022 Not Available [facility] 3 11:45:00 COVID-19 663036773 Active 2021 Not Available [facility] 3 11:45:00 Problem Notes None recorded. Procedures Surgical History Date Name Laterality Status Provider Name and Address Organization Details Recorded Time 1 Most Recent Mammogram completed Not Available [facility] 06/21/2022 03:04:30 9 Date of Last Pap Smear completed Not Available [facility] 06/21/2022 03:04:30 Breast Biopsy completed Not Available [facility] 06/21/2022 03:04:38 Knee Surgery completed [facility] 03:04:38 Imaging Results Imaging Date Name Status LastModified by [facility] Details LastModified Time 05/22/2022 US, pelvis completed [id number] [facility] [address] [place], [address], 06/21/2022 03:34:14 01/14/2021 MAMMO, screening, digital, bilateral completed [id number] [facility] [place] [facility] [address] [place], [address], 06/21/2022 03:34:14 01/14/2021 MAMMO, screening, digital, bilateral completed [id number] [facility] (Imaging) [address] [place], [address], 06/21/2022 03:34:14 01/14/2021 MAMMO, screening, digital, bilateral completed [id number] [facility] [address] [place], [address], 06/21/2022 03:34:14 01/20/2022 MAMMO, screening, digital, bilateral completed [id number] [facility] [address] [place], [address], 06/21/2022 03:34:14 01/20/2022 XR, chest completed [id number] [facility] [address] [place], [address], 06/21/2022 03:34:14 01/20/2022 XR, thoracic spine completed [id number] [facility] [address] [place], [address], 06/21/2022 03:34:14 07/03/2022 MRI, lumbar spine, w/o contrast completed [email or web address] Information not available 07/10/2022 10:33:37 06/01/2022 imaging/diagno stic result completed BARCODE Information not available 07/20/2022 11:47:13 01/19/2023 MAMMO, screening, digital, bilateral completed [email or web address] [facility] [address] [place], [address], 02/20/2023 15:27:43 Procedure Notes None recorded. Medical Equipment None Reported. Allergies No known drug allergies Medications Name Sig Start Date Stop Date Status Note LastModified by Organization Details LastModified Time cyclobenzap rine 10 mg tablet TAKE 1 TABLET 3 TIMES A DAY BY ORAL ROUTE NEEDED. active Not Available Not Available No t Available fluconazole 150 mg tablet 08/03 completed Not Available Not Available Not Available prednisone 20 mg tablet TAKE 3 TABLETS BY MOUTH ONCE DAILY FOR 5 DAYS. 06/19 completed Not Available Not Available Not Available diclofenac sodium 75 mg tablet,vashti yed release TAKE 1 TABLET BY MOUTH TWICE A DAY NEEDED 2022 active Not Available Not Available Not Avai lable methylpredn isolone 4 mg tablets in a dose pack TAKE 6 TABLETS ON DAY 1 DIRECTED ON PACKAGE AND DECREASE BY 1 TAB EACH DAY FOR A TOTAL OF 6 DAYS 06/19 completed Not Available Not Available Not Available naproxen 500 mg tablet TAKE 1 TABLET BY MOUTH TWICE A DAY WITH FOOD NEEDED FOR PAIN FOR UP TO 14 DAYS active Not Available Not Available No t Available amoxicillin 875 mg-potassiu m clavulanate 125 mg tablet Take 1 tablet every 12 hours by oral route. 08/03 completed Not Available Not Available Not Available cyclobenzap rine 5 mg tablet TAKE 1 TABLET BY MOUTH THREE TIMES A DAY NEEDED FOR MUSCLE SPASMS 02/02 completed Not Available Not Available Not Available levonorgest rel 0.15 mg-ethinyl estradiol 30 mcg tablets,3 mos pack(91) TAKE 1 TABLET BY MOUTH DAILY active Not Available Not Available No t Available nitrofurant oin monohydrate /macrocryst als 100 mg capsule 05/13 completed Not Available Not Available Not Available norethin-et hinyl estradiol-i micah 0.8 mg-25 mcg(24)/75 mg(4) chew tablet Chew 1 tablet every day by oral route. 07/18 completed Not Available Not Available Not Available Camrese 0.15 mg-30 mcg (84)/10 mcg(7) tablets,3 month dose pack TAKE ONE TABLET BY MOUTH ONCE DAILY 05/30 completed Not Available Not Available Not Available ID NOW COVID-19 Test Kit TEST DIRECTED TODAY 01/19 completed Not Available Not Available Not Available Paxlovid 300 mg (150 mg x 2)-100 mg tablets in a dose pack take as directed on blist pack active Not Available Not Available No t Available Vitals Date Recorded Body height Body mass index (BMI) Body weight Body temperature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
== END 2024-08-30 10:01 | disposition home or self-care (01) ==
PROVIDERS: PCP Physician Assistant; Visit Provider Otolaryngology Otolaryngology/Facial Plastic Surgery
DX: J32.9 Chronic sinusitis, unspecified (principal)
CPT/HCPCS: 70486

== ENCOUNTER 2024-10-20 07:55 | Outpatient (CLI) | payer BC, SELFPAY | END 2024-10-20 07:56 | disposition home or self-care (01) | LOC: ANHAUDASC 07:56 | PROVIDERS: PCP Physician Assistant; Visit Provider Otolaryngology Otolaryngology/Facial Plastic Surgery | DX: H90.3 Sensorineural hearing loss, bilateral (principal); H93.13 Tinnitus, bilateral | CPT/HCPCS: 92557; 92567 ==

== ENCOUNTER 2024-10-31 00:59 | Day surgery (SDC) | payer BC, SELFPAY ==
[2024-10-22 14:19] VITALS: BMI 25.8
--- NOTE | 2024-10-22 14:31 | SUR.PREOP ---
Report to the Outpatient Waiting Room, entrance under the green pavilion located off [facility], at time 6am on date 10/31/2024. Planned Procedure Time: 7:30a.m.? Time changes happen often and if your time is changed the preop area will call you the afternoon before. - You and your visitor will be asked to self-screen and do not enter if you have any COVID symptoms. Please call surgeon if you need to reschedule. - A mask is optional within the hospital at this time. Patients may have clear liquids (water, carbonated beverages, clear teas, apple juice) until 3 hours prior to surgery with a maximum of 20 ounces. - No food from midnight until time of surgery and no smoking, or chewing tobacco (or any form of nicotine). No chewing gum, candy or mints. Take only the following medications with a SIP of water on the morning of surgery: topiramate DO NOT STOP ANY OF YOUR OTHER PRESCRIPTION MEDICATIONS PRIOR TO SURGERY EXCEPT THE FOLLOWING Hold all vitamins and supplements for 3 days per anesthesiologist. 10/28/2024 is the day to stop taking vitamins and supplements Please no make-up, nail togolese, hairspray, perfume, deodorant, or body powder the day of surgery.? No jewelry (including any body piercings) or valuables the day of surgery, leave them at home.? Please take a shower or bath the night before, or the morning of, surgery with an antibacterial soap.? Wear comfortable, loose fitting clothing.? Children are encouraged to wear pajamas. - Jewelry must be removed prior to entering the operating room.? Rings and piercings that are not removed may be cut off. - The hospital will not accept responsibility for valuables.? - Please leave all valuables, including medications, at home the day of surgery. If you are going home after surgery, a licensed tour bus driver/guide must drive you home.? - NO public transportation without another adult if you receive anesthesia. - We recommend that an adult stay with you for 24 hours following discharge. - We also recommend that you do not drive, make important decision, drink alcoholic beverages, or take any drugs that were not prescribed by your health care provider for at least 24 hours after your discharge time. Follow any additional instructions given to you from your surgeon. Telephone instructions given to Kimberly Dorado and asked if any additional questions and then verbalized understanding. Patient advised to call surgeon office or pre surgery nurse liaison [phone] if any additional questions.
[2024-10-31] VITALS (8 sets, daily range): BP systolic 112–145; BP diastolic 56–97; PULSE 60–76; RESP 12–20; TEMP 36.2–37.1; O2SAT 99–100
--- OUTSIDE RECORDS SUMMARY | 2024-10-31 01:01 | XMS_ITS | Data Portability ---
Author Organization SHALOM NOYRenée Singh Address [address] [place] [address] Care Team Providers Care Home Energy Consultant Supervisor Name Role Phone ELIS GEORGE Primary Care [...] [facility], [address] [place], [address], 17:48:04 Procedures None recorded. Surgeries None recorded. Imaging XR, hip, bilateral 2023 024 [email or web address] [facility] [place], [address], [place], [address], 14:52:19 Medication Orders diclofenac sodium 75 mg tablet,vashti yed release 2023 024 [facility] [id number] In [facility], [address], [place], [address], 17:26:25 cyclobenzap rine 10 mg tablet 2023 024 [facility] [id number] In [facility], [address], [place], [address], 17:26:25 Patient TargetsNo targets recorded. Patient InstructionsNo instructions recorded. Reason for Referral Orthopedic Spine Surgeon Ref erral for Left foot drop Referring Physician: Elis George, Internal Medicine, Encounter Date: 02/08/2024 Results Created Date Observation Date Name Description Value Unit Range Abnormal Flag Note LastModifiedBy Organization Detail LastModifiedTime 02/08/2002/08/2024 MAMMO , scree baldev, digit al, bilat eral No observ ation record ed. [place] [address] [facility] [address], [place], [address], 02/08/2024 17:55:28 02/21/20 24 02/20/2024 XR, hip, bilat eral No observ ation record ed. [facility] [address] [facility] [address], [place], [address], 02/22/2024 18:45:38 09/01/19 25 08/30/2024 CT, sinus es, w/o contr ast No observ ation record ed. [address], [place], [address], 08/31/2024 16:22:00 Result Notes None recorded. Problems Name Problem SNOMED Code Status Onset Date Resolution Date Notes Provider Name and Address Organization Details Recorded Time Long-term drug therapy Active 2023 SIDRA Kahn Attn: Jayne mendez,[address] [facility], [place], [address], [facility] 4 18:27:26 Low back pain 760744188 Active 2023 SIDRA Kahn Attn: Jayne mendez,[address], [place], [address], [facility] 4 18:27:30 Cramp in lower limb 411650126 Active 2023 SIDRA Kahn Attn: Jayne mendez,[address] [facility], [place], [address], [facility] 4 18:27:51 Left foot drop 8782338979329 05 Active 2023 SIDRA Kahn Attn: Jayne mendez,[address] [place], [address], [facility] 4 18:27:52 Pain of bilateral hip joints 4598103949524 9100 Active 2023 SIDRA Kahn Attn: Jayne mendez,[address] [place], [address], [facility] 4 18:28:05 Body mass index 25-29 - overweight 400982514 Active 2023 SIDRA Kahn Attn: Jayne mendez,[address] [place], [address], [facility] 4 18:28:37 Problem Notes None recorded. Procedures Surgical History Date Name Laterality Status Provider Name and Address Organization Details Recorded Time 9 Knee Surgery completed Alhaji Sosa MA [facility] 02/08/2024 16:32:04 Imaging Results None recorded. Procedure Notes None recorded. Medical Equipment None [...] Available Not Avai lable Vitals Date Recorded Systolic And Diastolic Provider Name and Address Organization Details Last Updated DateTime 02/08/2024 110/80 mm[Hg] SIDRA Kahn Attn: Accounting,[address] [place], [address], [facility] 02/24/2024 18:23:35 Date Recorded Body weight Body mass index (BMI) Body height Oxygen saturation Oxygen saturation in Arterial blood by Pulse oximetry Heart rate Respiratory rate Systolic And Diastolic Provider Name and Address Organization Details Last Updated DateTime 4 99144.4 g 25.5 kg/m2 180.34 cm 99 % 99 % 78 /min 18 /min 108/68 mm[Hg] Alhaji Sosa MA [facility] 4 16:36:11 Social History Question Answer Notes LastModified by Organizat ion Details LastModified Time Tobacco Smoking Status Former Smoker quit 2022 Alhaji Sosa MA null, [place] - [facility] 02/08/2024 16:30:33 Do You Have An Advance Directive? Yes Information not available 02/08/2024 Are You Blind [...] No Information not available 02/08/2024 Are You Deaf Or Do You Have Serious Difficulty Hearing? No Information not available 02/08/2024 What Type Of Diet Are You Following? REGULAR Information not available 02/08/2024 Are There Any [...] Smoked Tobacco? 20 Information not available 02/08/2024 Sex: Female Functional Status Question Answer Note LastModified by Organizat ion Details LastModified Time Do you use any illicit or recreational drugs? No Information not available 02/08/2024 Do you or have you ever used any other forms of tobacco or nicotine? No Information not available 02/08/2024 What is your level of alcohol consumption? None Information not available 02/08/2024 Are you currently employed? Yes Information not available 02/08/2024 Are you able to care for yourself? 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 Moderate 3x a week 30 mins Information not available 02/08/2024 Mental Status Question Answer Note LastModified by Organization D etails LastModified Time Do you feel stressed (tense, restless, nervous, or anxious, or unable to sleep at night)? [id number] Information not available 02/08/2024 Family History Relationship Description Onset Age of this Age Resolved Age Notes LastModified by Organization Details LastModified Time Brother Harmful pattern of use of alcohol [email or web address] Not available 2023 16:29:38 Brother Depressive disorder [email or web address] Not available 2023 16:29:52 Brother Anxiety [email or web address] Not availabl e 02/08/2024 16:29:57 Medical History Condition Response Coronary Artery Disease N Other N Atrial Fibrillation N High Blood Pressure N Thyroid Problems N Kidney or Bladder Problems N Depression N COPD Y Blood Clots N GI Problems N Have you had a mammogram in the last yea r? N Skin Problems N Anemia N Heart Attack (VT) N Diabetes N Anxiety Disorder N Muscle, Joint, or Bone Problems N Seizures/Epilepsy N Have you had a colonoscopy in the last 1 0 years? N Acid Reflux (GERD) N Cancer N Stroke N Allergies N Asthma N Have you had a PSA blood test in the las t year? N High Cholesterol N Hepatitis N Liver Disease N Headaches N Osteoporosis N Heart Failure N Gynecological History Statement/Question Response Duration of Flow (days) Current Control Method BCPs Obstetrics History GPAL:G 0 P 0 0 0 0 Immunizations Vaccine Type Date Status Note Provider Nam e and Address Organization Details Recorded Time Influenza, MDCK, quadrivalent, PF 02/27/2022 completed ANOOP [place], [place] - [facility] 02/08/2024 16:33:03 Influenza, MDCK, [...] SNOMED-CT Code Diagnosis ICD10 Code Diagnosis Note [id number] Conrad Baez MD [facility] [place] [address] [place] [address] 02/08/2024 16:05:09 02/11/2024 15:13:45 Adult health examination 785030645 Z00.00 Annual wellness exam is completed, labs were reviewed with patient. Long-term drug therapy 725730278 Z79.891 Refill on Flexeril as directed Low back pain 800229150 M54.50 Refill on diclofenac therapy as directed Cramp in lower limb 4499 97466 R25.2 Cramp and lower limb reviewed with patient. Suggest some homeopathi c modalities such as Epson salt soaks or topical cream agents or magnesium supplement Left foot drop 959317424 1 44184 M21.372 Refer to ortho philosophy specialist for evaluation on her left footdrop onset Pain of bi lateral hip joints 3319020951 4678778 M25.551 M25.552 Check baseline x-rays of the hips with bilateral hip pain reported Body mass index 25-29 - overweight 777475518 Z68.25 BMI is 25.5 Health Concerns Section Related Observation LastModified by Organization Detai ls LastModified Time None Recorded Concern Status LastModified by Organization Details LastModified Time None Recorded Advance Directives Directive Y: Payers Insurance Date Sequence Insurance Name Policy Number Policy Carrasco Covered Member ID Carrasco Member ID Guarantor Name 02/25/2024 1 [place] [id number] Adonis Dorado [id number] Kimberly Harkinsemacher Notes Date Note Type Note Provider Name [...] her medications. SIDRA Kahn Attn: Accounting,[address] [place], [address], [place] - [facility] 02/24/2024 18:28:53 OBGyn Episode No OBEpisode recorded.
--- OUTSIDE RECORDS SUMMARY | 2024-10-31 01:01 | XMS_ITS | Referral Summary ---
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 [employer]OP[employer] Gender Identity Female 03/07/2022 5:46 PM [employer]NAGER [employer] Sexual Orientation Straight 03/07/2022 5: 46 PM [employer]NAGER [employer]OP[employer] Last Filed Vital Signs Vital Sign Reading Time Taken Comments Blood Pressure 104/70 06/06/2024 2:27 PM [employer] Pulse 102 06/06/2024 2:27 PM [employer]OP[employer] Temperature 36.6 C (97.8 F) 06/06/2024 2:27 PM [employer]OP[employer] Respiratory Rate 16 06/06/2024 2:27 PM [employer]NAGER [employer]OP[employer] Oxygen Saturation 99% 06/06/2024 2:27 PM [employer]NAGER [employer] Inhaled Oxygen Concentration - - Weight 83.9 kg (185 lb) 06/06/2024 2:27 PM [employer]OP[employer] Height 177.8 cm (5' 10) 06/06/2024 2:27 PM [employer]GER [employer]OP[employer] Body Mass Index 26.54 06/06/2024 2:27 PM [employer]NAGER [employer]OP[employer] Plan of Treatment Not on file [place] [address] [place] [id number] [place] [address] [place] [phone] [place] Care Teams Cigar Head Stringer Relationship Specialty Start Date End Date Elis Cardenas PA [address] [place] [id number] PCP - General Physician Vp Security 02/11/24
--- OUTSIDE RECORDS SUMMARY | 2024-10-31 01:01 | XMS_ITS | Clinical Summary ---
Author Organization [facility] Address [address] [place] [address] Care Team Providers Care Credit Risk Modeler Name Role Phone Elis Wallace Primary Care Pr ovider Source Comments [facility],non-owned Affiliates and Associated Physician Practices is amultiple site organization consisting of ambulatory clinics and hospital sitesin [place], [place], [place] and [place]. This disclosure is being madepursuant to the Care Everywhere program and may not contain all information available regarding this patient. Last updated 18.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 Gender Identity Not on file Sexual Orientation [...] 5:31 PM CDT Height 177.8 cm (5' 10) 11/15/2018 5:31 PM CDT Body Mass Index [...] 2023-2 5 season) 2023 DEPRESSION SCREENING 04/23/2024 PNEUMOCOCCAL VACCINE 50+ (1 of 1 - PCV) 2024 ZOSTER VACCINE (1 of 2) 2024 INFLUENZA VACCINE (#1) 2024 HIB VACCINE Aged Out No longer [...] to complete this [place] [place] [phone] [facility] Care Teams Credit Risk Modeler Relationship Specialty Start Date End Date Elis Wallace PA [address] [place] [address] [place] [phone] PCP - General Physician Extension Service Specialist 11/15/18
--- OUTSIDE RECORDS SUMMARY | 2024-10-31 01:02 | XMS_ITS | Data Portability ---
Author Organization [place] - [facility] [employer], Main Office Address [address] [place] [address] Assessment Encounter Date Assessment Date Assessment LastModified by Organization Details LastModified Time 02/02/2023 02/02/2023 mammogram normal UTD cologuard 2021 negative eye exam due dental UTD labs due [email or web address] Not available 02/02/2023 17:32:34 Plan of Treatment Reminders Order Date Submit Date Provider Last Modified By Organization Details Last Modified Time Details Appointments None recorded . Lab TSH + free T4, serum 023 02/03/20 23 [email or web address] [facility], [address], [place], [address], 4 10:18:12 lipid panel, serum 023 02/03/20 23 [email or web address] [facility], [address], [place], [address], 4 10:18:11 CBC w/ auto diff 023 02/03/20 23 [email or web address] [facility], [address], [place], [address], 4 10:18:11 CMP, serum or plasma 023 02/03/20 23 [email or web address] [facility], [address], [place], [address], 4 10:18:12 urinalys is, dipstick , reflex micro 023 02/03/20 23 [email or web address] [facility], [address], [place], [address], 4 10:18:12 HbA1c (hemoglo bin A1c), blood 023 02/03/20 23 [email or web address] [facility], [address], [place], [address], 4 10:18:11 Referral None recorded . Procedures [...] URINE , ROUTI NE Micro Numbe r: [id number] Test Statu s: Final Speci men [...] Cultu re Trans port Tube. Not Available [facility] [address], [place], [address], 07/26/2021 07:43:23 07/24/19 22 07/26/2021 RHEUM ATOID FACTO R rheumatoid factor <14 IU/mL <14 normal Not Available [facility] [address], [place], [address], 07/26/2021 07:43:22 07/24/19 22 07/26/2021 REFLE XIVE URINE CULTU RE reflexive urine culture CULTU RE INDIC ATED - RESUL TS TO FOLLO W Not Available [address], [address], 07/26/2021 07:43:22 07/24/19 22 07/26/2021 URINA LYSIS , COMPL ETE W/REF KRISTIAN TO CULTU RE appearance cloudy clear abnormal Not Available [address], [address], 07/26/2021 07:43:22 07/24/19 22 07/26/2021 URINA LYSIS , COMPL ETE W/REF KRISTIAN TO CULTU RE specific gravity 1.015 1.001- 1.035 normal Not Available [address], [address], 07/26/2021 07:43:22 07/24/19 22 07/26/2021 URINA LYSIS , COMPL ETE W/REF KRISTIAN TO CULTU RE pH 7.5 5.0-8. 0 normal Not Available [address], [address], 07/26/2021 07:43:22 07/24/19 22 07/26/2021 URINA LYSIS , COMPL ETE W/REF KRISTIAN TO CULTU RE glucose negati ve negati ve normal Not Available [address], [address], 07/26/2021 07:43:22 07/24/19 22 07/26/2021 URINA LYSIS , COMPL ETE W/REF KRISTIAN TO CULTU RE bilirubin negati ve negati ve normal Not Available [address], [address], 07/26/2021 07:43:22 07/24/19 22 07/26/2021 URINA LYSIS , COMPL ETE W/REF KRISTIAN TO CULTU RE ketones negati ve negati ve normal Not Available [facility] [address], [address], 07/26/2021 07:43:22 07/24/19 22 07/26/2021 URINA LYSIS , COMPL ETE W/REF KRISTIAN TO CULTU RE occult blood negati ve negati ve normal Not Available [facility] [address], [address], 07/26/2021 07:43:22 07/24/19 22 07/26/2021 URINA LYSIS , COMPL ETE W/REF KRISTIAN TO CULTU RE protein negati ve negati ve normal Not Available [facility] [address], [address], 07/26/2021 07:43:22 07/24/19 22 07/26/2021 URINA LYSIS , COMPL ETE W/REF KRISTIAN TO CULTU RE nitrite negati ve negati ve normal Not Available [address], [address], 07/26/2021 07:43:22 07/24/19 22 07/26/2021 URINA LYSIS , COMPL ETE W/REF KRISTIAN TO CULTU RE leukocyte esterase 3+ negati ve abnormal Not Available [address], [address], 07/26/2021 07:43:22 07/24/19 22 07/26/2021 URINA LYSIS , COMPL ETE W/REF KRISTIAN TO CULTU RE WBC 0-5 /hpf < or = 5 normal Not Available [facility] [address], [address], 07/26/2021 07:43:22 07/24/19 22 07/26/2021 URINA LYSIS , COMPL ETE W/REF KRISTIAN TO CULTU RE RBC 0-2 /hpf < or = 2 normal Not Available [facility] [address], [address], 07/26/2021 07:43:22 07/24/19 22 07/26/2021 URINA LYSIS , COMPL ETE W/REF KRISTIAN TO CULTU RE squamous epithelial cells 10-20 /hpf < or = 5 abnormal Not Available [address] [address] [place], [address], 07/26/2021 07:43:22 07/24/19 22 07/26/2021 URINA LYSIS , COMPL ETE W/REF KRISTIAN TO CULTU RE bacteria modera te /hpf none seen abnormal Not Available [facility] [address] [address] [place], [address], 07/26/2021 07:43:22 07/24/19 22 07/26/2021 URINA LYSIS , COMPL ETE W/REF KRISTIAN TO CULTU RE hyaline cast none seen /lpf none seen normal Not Available [facility] [address], [address], 07/26/2021 07:43:22 07/24/19 22 07/26/2021 URINA LYSIS , COMPL ETE W/REF KRISTIAN TO CULTU RE color yellow yellow normal Not Available [address], [address], 07/26/2021 07:43:22 07/24/19 22 07/26/2021 HEMOG LOBIN [...] anthony. Curre ntly, no conse nsus exist s paola nolen use of hemog lobin A1c for diagn osis of diabe anthony in child debi. Accor callum to Ameri can Diabe anthony Assoc iatio n (ADA) guide lines , hemog lobin A1c <7.0% repre sents optim al contr ol in non-p regna nt diabe tic patie nts. Diffe rent metri cs may apply to speci fic patie nt popul ation s. Stand ards of Medic al Care in Diabe anthony(A DA). Not Available [facility] [address] [address] [place], [address], 07/26/2021 07:43:21 07/24/19 22 07/26/2021 COMPR EHENS MAXIMUS METAB OLIC PANEL chloride 104 mmol/ L 98-110 normal Not Available [facility] [address] [address] [place], [address], 07/26/2021 07:43:21 07/24/19 22 07/26/2021 COMPR EHENS MAXIMUS METAB OLIC PANEL glucose 83 mg/dL 65-99 normal Fasti ng refer ence inter miki Not Available [address] [address] [address] , [place], [address], 07/26/2021 07:43:21 07/24/19 22 07/26/2021 COMPR EHENS MAXIMUS METAB OLIC PANEL urea nitrogen (BUN) 12 mg/dL 7-25 normal Not Available [address] [address] [place], [address], 07/26/2021 07:43:21 07/24/19 22 07/26/2021 COMPR EHENS MAXIMUS METAB OLIC PANEL creatinine 0.80 mg/dL 0.50-1 .10 normal Not Available [facility] [address] [address] [place], [address], 07/26/2021 07:43:21 07/24/19 22 07/26/2021 COMPR EHENS MAXIMUS METAB OLIC PANEL eGFR non-afr. new zealander 88 mL/mi n/1.7 3m2 > or = 60 normal Not Available [facility] [address] [address] [place], [address], 07/26/2021 07:43:21 07/24/19 22 07/26/2021 COMPR EHENS MAXIMUS METAB OLIC PANEL eGFR 102 mL/mi n/1.7 3m2 > or = 60 normal Not Available [address], [address], 07/26/2021 07:43:21 07/24/19 22 07/26/2021 COMPR EHENS MAXIMUS METAB OLIC PANEL BUN/creatini ne ratio not applic able (calc ) 6-22 Not Available [address], [address], 07/26/2021 07:43:21 07/24/19 22 07/26/2021 COMPR EHENS MAXIMUS METAB OLIC PANEL sodium 141 mmol/ L 135-14 6 normal Not Available [address], [address], 07/26/2021 07:43:21 07/24/19 22 07/26/2021 COMPR EHENS MAXIMUS METAB OLIC PANEL potassium 4.5 mmol/ L 3.5-5. 3 normal Not Available [address], [address], 07/26/2021 07:43:21 07/24/19 22 07/26/2021 COMPR EHENS MAXIMUS METAB OLIC PANEL carbon dioxide 24 mmol/ L 20-32 normal Not Available [address], [address], 07/26/2021 07:43:21 07/24/19 22 07/26/2021 COMPR EHENS MAXIMUS METAB OLIC PANEL calcium 9.8 mg/dL 8.6-10 .2 normal Not Available [address], [address], 07/26/2021 07:43:21 07/24/19 22 07/26/2021 COMPR EHENS MAXIMUS METAB OLIC PANEL protein, total 6.7 g/dL 6.1-8. 1 normal Not Available [address] [address] [place], [address], 07/26/2021 07:43:21 07/24/19 22 07/26/2021 COMPR EHENS MAXIMUS METAB OLIC PANEL albumin 4.3 g/dL 3.6-5. 1 normal Not Available [address], [address], 07/26/2021 07:43:21 07/24/19 22 07/26/2021 COMPR EHENS MAXIMUS METAB OLIC PANEL globulin 2.4 g/dL_ (calc ) 1.9-3. 7 normal Not Available [address], [address], 07/26/2021 07:43:21 07/24/19 22 07/26/2021 COMPR EHENS MAXIMUS METAB OLIC PANEL albumin/glob ulin ratio 1.8 (calc ) 1.0-2. 5 normal Not Available [address] [address] [place], [address], 07/26/2021 07:43:21 07/24/19 22 07/26/2021 COMPR EHENS MAXIMUS METAB OLIC PANEL bilirubin, total 0.7 mg/dL 0.2-1. 2 normal Not Available [address], [address], 07/26/2021 07:43:21 07/24/19 22 07/26/2021 COMPR EHENS MAXIMUS METAB OLIC PANEL alkaline phosphatase 38 U/L 31-125 normal Not Available [facility] [place] [facility] [address] [address] [place], [address], 07/26/2021 07:43:21 07/24/19 22 07/26/2021 COMPR EHENS MAXIMUS METAB OLIC PANEL AST 16 U/L 10-35 normal Not Available [address], [address], 07/26/2021 07:43:21 07/24/19 22 07/26/2021 COMPR EHENS MAXIMUS METAB OLIC PANEL ALT 20 U/L 6-29 normal Not Available [address], [address], 07/26/2021 07:43:21 07/24/19 22 07/26/2021 DIREC T LDL direct LDL 110 mg/dL <100 high Erica able range <100 mg/dL for prima ry preve ntion ; <70 mg/dL for patie nts with CHD or diabe tic patie nts with > or = 2 CHD risk facto rs. Not Available [address], [address], 07/26/2021 07:43:20 07/24/19 22 07/26/2021 LIPID PANEL , STAND JOSELINE cholesterol, total 183 mg/dL <200 normal Not Available [address], [address], 07/26/2021 07:43:20 07/24/19 22 07/26/2021 LIPID PANEL , STAND JOSELINE HDL cholesterol 60 mg/dL > or = 50 normal Not Available [address], [address], 07/26/2021 07:43:20 07/24/19 22 07/26/2021 LIPID PANEL , STAND JOSELINE triglyceride s 93 mg/dL <150 normal Not Available [address], [address], 07/26/2021 07:43:20 07/24/19 22 07/26/2021 LIPID PANEL , STAND JOSELINE LDL-choleste rol 104 mg/dL _(rupert c) high Refer ence range : <100 Erica able range <100 mg/dL for prima ry preve ntion ; <70 mg/dL for patie nts with CHD or diabe tic patie nts with > or = 2 CHD risk facto rs. LDL-C is now calcu lated using the Rachael n-Hop kins johanne peterson n, which is a valid ated novel metho d sidneyi callum hebert acy than the Fried amanda equat ion in the estim ation of LDL-C . Rachael spears SS et al. ANDRZEJ. 2013; 310(1 9): 2061- 2068 (http ://ed ucati on.Qu estDi Smishs. com/f aq/FA Q164) Not Available [facility] [address] [address] [place], [address], 07/26/2021 07:43:20 07/24/19 22 07/26/2021 LIPID PANEL , STAND JOSELINE chol/HDLC ratio 3.1 (calc ) <5.0 normal Not Available [address] [address] [facility] [place], [address], 07/26/2021 07:43:20 07/24/19 22 07/26/2021 LIPID PANEL , STAND JOSELINE non HDL cholesterol 123 mg/dL _(rupert c) <130 normal For patie nts with diabe anthony plus 1 major ASCVD risk facto r, treat ing to a non-H DL-C goal of <100 mg/dL (LDL- C of <70 mg/dL ) is mery carcamo optio n. Not Available [facility] [address] [address] [place], [address], 07/26/2021 07:43:20 07/24/1907/26/2021 TSH+F REE T4 TSH 2.27 mIU/L normal Refer ence Range > or = 20 Years 0.40- 4.50 Pregn dwain Range s First trime ster 0.26- 2.66 Secon d trime ster 0.55- 2.73 Third trime ster 0.43- 2.91 Not Available [facility] [address] [address] [address], [place], [address], 07/26/2021 07:43:19 07/24/1907/26/2021 TSH+F REE T4 T4, free 1.3 NG/dL 0.8-1. 8 normal Not Available [facility] [address], [place], [address], 07/26/2021 07:43:19 01/27/20 22 01/26/2022 COLOG UARD [...] ectiv e cross -sect ional study of 10,00 0 indiv idual s at [place] risk for color ectal cance r [...] asymp tomat ic indiv idual s at [place] risk for color ectal cance r. Follo [...] Color ectal Cance r Scree baldev: https ://danna w.can cer.o rg/ca ncer/ colon -rect al-ca ncer/ detec tion- diagn osis- stagi ng/ac s-rec ommen datio ns.ht ml.; Anthony DK, Christie dowell CR, Carlos MesaK, Color ectal Cance r Scree baldev: Recom menda tions for Physi cians and Patie nts from the U.S. Multi -Soci ety Task Force on Color ectal Cance r Scree baldev , Xavier Merrill oente rolog y 2017; 112:1 016-1 030. TEST DESCR IPTIO N: Sandoval site algor ithmi c boone sis of [...] years or older , who are at [facility] for color ectal cance r (CRC) . Colog uard has been appro eloy for use by the U.[place]. FDA. The perfo rmanc e of Colog uard was estab lishe d in a cross secti onal study of [facility] adult s aged 50-84 . Colog uard perfo rmanc e in patie nts ages 45 to 49 years was estim ated by sub-g roup boone sis of near- age group s. [...] of 10,00 0 indiv idual s at [place] risk for color ectal cance r [...] wing locat ion: www.e xactl abs.c om/re sulluis . Addit ional descr iptio n of the Colog uard test proce ss, warni ngs and preca ution s can be found at www.c ologu joseline.c om. Not Available [employer] (Cologuard Orders Only) [address], [place], [address], 01/31/2022 18:47:50 01/15/20 21 01/14/2021 MAMMO , scree baldev, digit al, bilat eral No observ ation record ed. [id number] [facility] [address] [place], [address], 06/21/2022 03:34:14 01/15/20 21 MAMMO , scree baldev, digit al, bilat eral [facility] [address] [place] [address] [phone] Patien t Name: MOISÉS ROGERS ER Access ion #: [id number] Sex: F : 1975 7 Locati on: RA2 Attend ing Physic lynn: ZEFERINO HICKS Orderi ng Physic lynn: ZEFERINO HICKS Exam Date: 8:08 AM Exam Name: DIGITA L DONIS BILAT SCREEN Admitt ing Diagno sis(es [...] tion are seen. Page 1 of 2 [facility] Name: MOISÉS ROGERS ER Access ion #: [id number] Sex: F : 1975 7 Exam [...] be report ed prompt ly to the [facility] er. A negati ve mammog yaron report [...] 9:01 AM (CT) Page 2 of 2 [id number] [facility] (Imaging) [address] [place], [address], 06/21/2022 03:34:14 02/29/20 21 01/14/2021 MAMMO , scree baldev, digit al, bilat eral No observ ation record ed. [id number] [facility] [address] [place], [address], 06/21/2022 03:34:14 01/21/20 22 01/20/2022 XR, chest No observ ation record ed. MIGRATION. [id number] [facility] Add On Lab Orders [address] [place], [address], 06/21/2022 03:34:14 01/21/20 22 01/20/2022 XR, thora cic spine No observ ation record ed. MIGRATION. [id number] [facility] Add On Lab Orders [address] [place], [address], 06/21/2022 03:34:14 03/21/20 22 01/20/2022 MAMMO , scree baldev, digit al, bilat eral No observ ation record ed. MIGRATION. [id number] [facility] Add On Lab Orders [address] [place], [address], 06/21/2022 03:34:14 05/31/19 23 05/22/2022 US, pelvi s No observ ation record ed. [id number] [facility] [address] [place], [address], 06/21/2022 03:34:14 07/04/19 23 07/03/2022 MRI, lumba r spine , w/o contr ast No observ ation record ed. [email or web address] Not Available 07/10 10:33:37 07/21/19 23 06/01/2022 imagi ng/di agnos tic resul t No observ ation record ed. BARCODE Not Available 2022 11:47:13 02/17/20 23 01/19/2023 MAMMO , scree baldev, digit al, bilat eral No observ ation record ed. [email or web address] [facility] [address] [place], [address], 02/20/2023 15:27:43 Result Notes Documentation Provider Name and Address Organization Details Recorded Time Mammo, Screening, Digital, Bilateral : [facility] [address] [place] [address] Patient Name: KIMBERLY SALAZAR Sex: F : 1975 Location: [facility] Attending Physician: ZEFERINO GALICIA Ordering Physician: ZEFERINO GALICIA Exam Date: 01/14/2021 8:08 AM Exam Name: DIGITAL DONIS BILAT SCREEN Admitting Diagnosis(es): RADIOLOGY REPORT - FINAL EXAM: MG DIGITAL DONIS BILAT SCREEN HISTORY: screening mammogram COMPARISON: Mammography 12/04/2017 TECHNIQUE: Bilateral CC and MLO views of the breasts were performed. Digital Mammography images were obtained. CAD (computer assisted detection) was utilized. FINDINGS: The breasts are extremely dense, which lowers the sensitivity of mammography. No masses, asymmetries, suspicious calcifications, or architectural distortion are seen. Page 1 of 2 [facility] Patient Name: KIMBERLY SALAZAR Sex: F : 1975 Exam Date: 01/14/2021 8:08 AM Exam Name: DIGITAL DONIS BILAT SCREEN Admitting Diagnosis(es): IMPRESSION: BIRADS 1: Assessment complete. Negative. Recommend annual screening mammography. According to the [employer], yearly mammograms are recommended starting at age 40 and continuing as long as the woman is in good health. Clinical Breast Exam should be part of the periodic health exam-about every 3 years for women in their 20s and 30s and every year for women 40 and over. Breast self-exam is an option for women in their 20s. Any breast change noted on the breast self-exam she would be reported promptly to the patient's health care provider. A negative mammography report should not discourage follow-up or biopsy of a clinically significant finding and/or abnormality. Dense breast tissue may obscure small neoplasms. This patient has been entered into a mammography reminder system with a target date for her next mammogram. Created and electronically signed by: Javy Holley DO Signed Date: 01/14/2021 9:01 AM (CT) Dictated by: Javy Holley DO (CT) (CT) Page 2 of 2 Not Available [facility] 06/21/2022 03:34:18 Problems Name Problem SNOMED Code Status Onset Date Resolution Date Notes Provider Name and Address Organization Details Recorded Time Lumbar radiculopa thy 348151986 Active 2022 Not Available [facility] 3 11:45:00 Weakness of left leg 4149936166847 9104 Active 2022 Not Available [facility] 3 11:45:00 Thoracic back pain 027720605 Active 2021 Not Available [facility] 3 11:45:00 Low back pain 538230934 Active 2021 Not Available [facility] 3 11:45:00 Left side sciatica 4084470303896 04 Active 2022 Not Available [facility] 3 11:45:00 Pain of multiple joints 84030124 Active 2021 Not Available [facility] 3 11:45:00 Degenerati on of lumbosacra l interverte bral disc 54740305 Active 2022 Not Available [facility] 3 11:45:00 COVID-19 024420062 Active 2021 Not Available [facility] 3 11:45:00 Problem Notes None recorded. Procedures Surgical History Date Name Laterality Status Provider Name and Address Organization Details Recorded Time 1 Most Recent Mammogram completed Not Available [facility] 06/21/2022 03:04:30 9 Date of Last Pap Smear completed Not Available [facility] 06/21/2022 03:04:30 Breast Biopsy completed Not Available [facility] 06/21/2022 03:04:38 Knee Surgery completed Not Available [facility] 06/21/2022 03:04:38 Imaging Results None recorded. Procedure Notes None [...] No t Available Vitals Date Recorded Body mass index (BMI) Body height Oxygen saturation Oxygen saturation in Arterial blood by Pulse oximetry Heart rate Body temperature Body weight Systolic And Diastolic Provider Name and Address Organization Details Last Updated DateTime 3 26.1 kg/m2 177.8 cm 98 % 98 % 78 /min 97.5 [degF] 93387.8 1 g 114/78 mm[Hg] Not Available [facility] 3 03:13:13 Date Recorded Body mass index (BMI) Body height Body temperature Body weight Systolic And Diastolic Provider Name and Address Organization Details Last Updated DateTime 07/06/2020 23.4 kg/m2 177.8 cm 97.2 [degF] 10370.5 6 g 116/72 mm[Hg] Not Available [facility] 3 03:13:13 Date Recorded Body mass index (BMI) Body height Oxygen saturation Oxygen saturation in Arterial blood by Pulse oximetry Heart rate Respiratory rate Body temperature Body weight Systolic And Diastolic Provider Name and Address Organization Details Last Updated DateTime 2 26.1 kg/m2 177.8 cm 98 % 98 % 81 /min 16 /min 97.7 [degF] 40584.3 7 g 112/72 mm[Hg] Not Available [facility] 3 03:13:13 Date Recorded Body height Oxygen saturation Oxygen saturation in Arterial blood by Pulse oximetry Heart rate Respiratory rate Body temperature Systolic And Diastolic Provider Name and Address Organization Details Last Updated DateTime 2 177.8 cm 98 % 98 % 71 /min 16 /min 97.2 [degF] 110/64 mm[Hg] Not Available [facility] 3 03:13:13 Date Recorded Body height Body mass index (BMI) Body weight Body temperature Heart rate Oxygen saturation Oxygen saturation in Arterial blood by Pulse oximetry Systolic And Diastolic Provider Name and Address Organization Details Last Updated DateTime 3 177.8 cm 25.8 kg/m2 85982.6 3 g 98.1 [degF] 65 /min 99 % 99 % 124/72 mm[Hg] Elise Cosby RN [facility] 3 16:51:05 Social History Question Answer Notes LastModified by Organizat ion Details LastModified Time Tobacco Smoking Status Former Smoker quit [address] [facility], [facility] 02/02/2023 16:46:25 What Is Your Level Of Caffeine Consumption? Moderate [id number] Information not available 06/21/2022 In The 14 Days Before Symptom Onset, Have You Had Close Contact With A Laboratory-confir med COVID-19 While That Case Was Ill? No [email or web address] Information not available 02/02/2023 In The 14 Days Before Symptom Onset, Have You Had Close Contact With A Person Who Is Under Investigation For COVID-19 While That Person Was Ill? No [email or web address] Information not available 02/02/2023 What Type Of Diet Are You Following? REGULAR [id number] Information not available 06/21/2022 Which Illicit Or Recreational Drugs Have You Used? None [email or web address] Information not available 02/02/2023 Have There Been Any Changes To Your Family Or Social Situation? No [email or web address] Information no t available 02/02/2023 Are There Any Guns Present In Your Home? No [email or web address] Information not available 02/02/2023 Do You Use Insect Repellent Routinely? No [email or web address] Information not available 02/02/2023 What Is Your Relationship Status? [id number] Information not available 06/21/2022 Do You Use Your Seat Belt Or Car Seat Routinely? Yes [email or web address] Information not available 02/02/2023 Do You Have Smoke And Carbon Monoxide Detectors In Your Home? Yes [email or web address] Information not available 02/02/2023 At What Age Did You Start Smoking Tobacco? 17 [email or web address] Information not available 02/02/2023 Do You Use Sunscreen Routinely? No [email or web address] Information not available 02/02/2023 Have You Recently Traveled Abroad? No [email or web address] Information not available 02/02/2023 Do You Have Any Dietary Restrictions? No [email or web address] Information not available 02/02/2023 Sex: Unknown Functional Status Question Answer Note LastModified by Organizat ion Details LastModified Time Do you use any illicit or recreational drugs? No [email or web address] Information not available 02/02/2023 Do you or have you ever used any other forms of tobacco or nicotine? Yes [email or web address] Information not available 02/02/2023 What is your level of alcohol consumption? None [id number] Information not available 06/21/2022 Are you currently employed? 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 Current user of electronic cigarettes vaping [email or web address] Information not available 02/02/2023 What is your exercise level? Moderate [id number] Information not available 06/21/2022 Mental Status None recorded. Family History Relationship Description Onset Age of this Age Resolved Age Notes LastModified by Organization Details LastModified Time Paternal Grandmother Diabetes mellitus [id number] Not available 06/21/2022 03:04:46 Mother Hypertensive disorder [id number] Not available 06/21/2022 03:04:47 Mother Hyperlipidem ia [id number] Not available 16:46:25 Father Disorder of urinary bladder [id number] Not available 16:46:25 Medical History Condition Response [...] Recorded Time influenza, unspecified formulation 3 completed Ngoc Murphy, RMA null, [place] [facility] 03/23/2023 16:13:40 COVID-19, mRNA, LNP-S, PF, 100 mcg/0.5mL dose or 50 mcg/0.25mL dose 1 completed Not Available [facility] 06/21/2022 03:33:06 COVID-19, mRNA, LNP-S, PF, 100 mcg/0.5mL dose or 50 mcg/0.25mL dose 1 completed Not Available [facility] 06/21/2022 03:33:06 COVID-19, mRNA, LNP-S, PF, 100 mcg/0.5mL dose or 50 mcg/0.25mL dose 1 completed Not Available [facility] 06/21/2022 03:33:06 Past Encounters Encounter ID Performer Location Encounter Start Date Encounter Closed Date Diagnosis/Indication Diagnosis SNOMED-CT Code Diagnosis ICD10 Code Diagnosis Note [id number] [facility]_ DEFAULT_1 _1 , 07/06/2020 00:00:00 07/06/2020 11:00:28 [id number] SIDRA Kahn [facility] [place] [address] [place] [address] 07/20/2021 00:00:00 07/20/2021 09:32:34 [id number] [facility] [place] [address] [place] [address] 01/20/2022 00:00:00 01/20/2022 10:37:31 [id number] SIDRA Kahn [facility] Internal [facility] [place] [address] [place] [address] 06/20/2022 00:00:00 06/20/2022 17:26:05 [id number] SIDRA Kahn [facility] [place] [address] [place] [address] 02/02/2023 16:45:23 02/02/2023 17:34:29 Adult health examination 199835173 Z00.00 well exam completed. all annual labs due fasting. Cholesterol screening 27 3015322 Z13.220 Diabetes m ellitus screening 214161386 Z13.1 Thyroid di sorder screening 852800289 Z13.29 Degenerati on of lumbosacral intervertebral disc 05678552 M51.37 hx noted. Left side sciatica 94683 [id number] 48291 M54.32 some improvemen t noted. has had P.T Health Concerns Section Related Observation LastModified by Organization Detai ls LastModified Time None Recorded Concern Status LastModified by Organization Details LastModified Time None Recorded Advance Directives Directive None Recorded Payers Insurance Date Sequence Insurance Name Policy Number Policy Carrasco Covered Member ID Carrasco Member ID Guarantor Name 02/21/2023 1 [facility] [facility] [id number] Adonis Salazar [id number] Kimberly Salazar Notes Date Note Type Note Provider Name [...] incontinence; no shortness of breath Not Available [facility] [employer] 07/20/2021 09:32:34 01/20/2022 text/html Generic HPI TemplateReported bypatient.Notes:pt presents today in good mood, no complaints Not Available [place] [employer] [facility] [employer] [facility] 01/20/2022 10:37:31 06/20/2022 text/html Back Pain - [...] foot drop continues with weakness Not Available [place] [employer] [facility] [employer] [facility] 06/20/2022 17:26:05 02/02/2023 text/html wellnessno chron ic problems SIDRA Kahn [address] [facility], [facility] [address], [place], [address], [facility] [employer] [facility] 02/21/2023 00:37:07 OBGyn Episode No OBEpisode recorded.
--- OUTSIDE RECORDS SUMMARY | 2024-10-31 01:02 | XMS_ITS | Clinical Summary ---
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 Obstetrics History Last Filed Vital Signs Vital Sign Reading Time Taken Comments Blood Pressure 104/70 06/06/2024 2:27 PM 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 Pulse 102 06/06/2024 2:27 PM 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 Temperature 36.6 C (97.8 F) 06/06/2024 2:27 PM 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 Respiratory Rate 16 06/06/2024 2:27 PM 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 Oxygen Saturation 99% 06/06/2024 2:27 PM 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 Inhaled Oxygen Concentration - - Weight 83.9 kg (185 lb) 06/06/2024 2:27 PM 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 Height 177.8 cm (5' 10) 06/06/2024 2:27 PM 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 Body Mass Index 26.54 06/06/2024 2:27 PM 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 Plan of Treatment Health Maintenance Due Date Last Done Comments Breast Cancer Screening-Mammogram 1974 Cervical Cancer Screening 1974 Colon Cancer Screening-Colonoscopy 1974 Depression Screening 1974 Hepatitis C Screening 1974 DTaP/Tdap/Td Vaccine (1 - Tdap) 1985 Hepatitis B Screening 1992 Regular Well Visit/Exam 18-64 1992 Covid-19 Vaccine (4 - 2023-2 5 season) 2023 04/10/2021, 06/04/2020, 05/07/2020 Zoster Vaccine (1 of 2) 2024 Influenza Vaccine (#1) 2024 , 03/02/2023, 02/27/2022 Pneumococcal vaccine <65 Aged Out No longer eligible based on patient's age to complete this topic Insurance [employer] [address] [place] [employer] Care Teams Global Manager Relationship Specialty Start Date End Date Elis Cardenas PA [address] [place] [address] PCP - General Physician Textile Converter 02/11/24
[2024-10-31] MEDS: LACTATED RINGERS 1,000 ML 30 ML IV CONT ×2 (06:35→08:44)
--- NOTE | 2024-10-31 07:12 | P.PNAN_ITS ---
Anes - Initial Pre Proc Eval Procedure: Operation Date: 10/31/24 07:30 Proposed Procedures p Bilateral Eustachian Tube Dilation - Janet Dobbs MD s Possible Endoscopic Septoplasty - Janet Dobbs MD Date/Time: 10/31/24 07:12 Surgeon: Janet Dobbs MD Pre Op Diagnosis: Dysf of both Eustachian Tubes, Sinusitits Patient Data Age: 49 Gender: F Height: 1.78 m Weight: 81.64 kg Allergies Allergy/AdvReac Type Severity Reaction Status Date / Time No Known Allergies Allergy Verified 10/27/24 07:37 Home Medications ?Medication ?Instructions ?Recorded ?Confirmed ?Type diclofenac sodium 25 mg 25 mg PO BID 07/19/22 10/27/24 History tablet,delayed release cyclobenzaprine 10 mg tablet 10 mg PO DAILY 07/23/23 10/27/24 History levonorgestrel 0.15 mg-ethinyl 1 tablet PO DAILY #91 ea 06/30/24 10/27/24 Rx estradiol 30 mcg tablets,3 mos pack(91) fluticasone propionate 50 2 spray intranasal DAILY 07/11/24 10/27/24 History mcg/actuation nasal spray,suspension topiramate 50 mg tablet 50 mg PO BID 07/11/24 10/27/24 History sodium chloride-aloe vera nasal 1 applic topical Q1-2H PRN dry 08/15/24 10/27/24 Rx gel ([place] Saline nasal gel) nasal passages 30 days #14.1 grams azelastine 137 mcg (0.1 %) nasal See Rx Instructions .Route 10/02/24 10/27/24 Rx spray .COMPLEX #30 mL Patient hx anesthesia problems: none Family hx anesthesia problems: none Results Review: All pre-operative results and documents have been reviewed as part of the pre- operative evaluation. [facility] Past Medical History Medical History Nasal mucosa dry Chronic eustachian tube dysfunction Post-nasal drip Nasal congestion Chronic sinusitis Hypertrophy of nasal turbinates Allergic rhinitis Sinus headache Acute sinusitis Dysfunction of both eustachian tubes Depression Anxiety Surgical History Surgical History History of knee surgery as a child History of breast biopsy rt breast bx--benign Family History Family History Mother Hypertension Grandparent Diabetes mellitus paternal grandmother Father Alcoholism Social History Social History Social History: Caffeine-coffee Smoking status: Never smoker Second hand tobacco smoke exposure: Yes Smoking end date: 11/21/22 Alcohol intake: never Substance use: never Substance use type: does not use Do You Feel Safe in your Home?: Yes Lack of Transportation: No Lack of Food: Never True Current Housing: I Have Housing Concerned About Future Housing: No Difficulty Paying Gas/Electric Bills: No Difficulty Paying for Meds: No Currently Unemployed: No Education: Master's Degree or Higher Difficulty w/ Childcare or Family Care: No Living arrangements: with family Additional living arrangements comments: Occupation/Education: 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 Pt overall good health with chronic sinus problems. Somewhat active w walking 1-2 fos, no cp or sob. Informed Consent: The patient's anesthetic plan and its attendant risks and benefits were discussed with the patient/family/POA. Questions were solicited and answers provided to the satisfaction of the patient/family/POA.
--- NOTE | 2024-10-31 07:16 | WPDHPUPDATE1 ---
History and Physical Update Update Date/Time: 10/31/24 07:16 History and Physical has been reviewed, including an updated exam of the patient. There are NO changes in the patient's condition. Risks, benefits, and alternatives have been discussed and questions answered. Patient agrees to proceed with procedure. 49-year-old female with bilateral eustachian tube dysfunction,and deviated nasal septum will plan for bilateral eustachian tube balloon dilation and possible septoplasty
[2024-10-31] MEDS: ceFAZolin 2 GM in SODIUM CHLORIDE 0.9% IV 50 ML 100 ML IVPB (07:35)
--- NOTE | 2024-10-31 08:20 | W.PM.PROC2 ---
Procedure Note - Detailed Date of Procedure 10/31/24 Pre-op Diagnosis Dysf of both Eustachian Tubes Post-op Diagnosis Same Procedure Performed Bilateral Eustachian tube dilation Surgeon Janet Dobbs MD Anesthesia General Indications Bilateral Eustachian tube dysfunction Findings the left side eustachian tube mucosa inflammation was grade 4 the right side eustachian tube mucosa inflammation was grade 2 Description of Procedure DESCRIPTION OF PROCEDURE: The patient was seen in the preoperative area, informed consent was checked and confirmed. The patient was taken to the operating room, sedated and placed under general anesthesia with an endotracheal tube . Eyes were taped and were prepped and draped in the usual sterile fashion. DESCRIPTION OF PROCEDURE: The patient was seen in the preoperative area, informed consent was checked and confirmed. The patient was taken to the operating room, sedated and placed under general anesthesia with an endotracheal tube . Eyes were taped and were prepped and draped in the usual sterile fashion. Specific risks of the ear procedures were discussed in length including but not limited to patulous eustachian tube, recurrent disease, otorrhea, hearing loss, tympanic perforation, need for further surgery. All the questions were answered to the best of my ability and the patient decided to proceed with surgical intervention.' Attention was turned to the Eustachian tube opening on the right. The posterior nasal cavity was examined with zero-degree endoscope. Eustachian tube opening was visualized in the nasopharynx. A 6 mm balloon device was guided into the Eustachian tube and dilated for 2 minutes. The balloon was deflated and retracted traumatically into the guide. The Eustachian tube observed there was no trauma or bleeding. Attention was turned to the Eustachian tube opening on the left. The posterior nasal cavity was examined with zero-degree endoscope. Eustachian tube opening was visualized in the nasopharynx. A 6 mm balloon device was guided into the Eustachian tube and dilated for 2 minutes. The balloon was deflated and retracted traumatically into the guide. The Eustachian tube observed there was no trauma or bleeding. At this point the patient was handed over to the anesthesia team for awakening Estimated Blood Loss 1 (ml) Drains No Packing No Pathology None sent Complications No immediate complications Condition Stable Disposition PACU [facility] Billing Surgery - Charge Forward: Surgery Billing
[2024-10-31] MEDS: ONDANSETRON INJ 4 MG/2 ML VIAL IV PUSH (08:37)
[2024-10-31 08:56] LABS: BEDSIDEPREGUCG Negative (Negative)
== END 2024-10-31 10:20 | disposition home or self-care (01) ==
PROVIDERS: PCP Physician Assistant; Visit Provider Otolaryngology Otolaryngology/Facial Plastic Surgery
PROC: (CPT 69706; principal; 2024-10-31 07:30)
PROC: (CPT 30520; 2024-10-31 07:30)
DX: H69.93 Unspecified Eustachian tube disorder, bilateral (principal)
CPT/HCPCS: 69706; J0690; A9270; C1726; J1100; J2003; J2004; J2250; J2270; J2405; J2704; J3010; J7050; J7120